=== PATIENT | male | born 1955 | race Caucasian/White ===

== ENCOUNTER 2017-11-10 06:11 | Inpatient (IN) | payer MEDICARE ==
[~2017-11-10] VITALS: Ht 175.3 cm; Wt 72.3 kg
[~2017-11-10 06:11] MED LIST: ALDACTONE25 MG PO; AMIODARONE HCL200 MG PO; CARVEDILOL3.125 MG PO; DIGOXIN125 MCG PO; FUROSEMIDE40 MG PO; HYDROCODONE; KLOR-CON 1010 MEQ PO; LASIX40 MG PO; LISINOPRIL2.5 MG PO; MINOCYCLINE HCL50 MG PO; NORCO 5-325 TA1 EACH PO; POTASSIUM CHLO20 ME1 PO; RESTORIL15 MG PO
[2017-11-10] MEDS ORDERED: METHYLPREDNISOL40 MG PO (08:42)
[2017-11-10] MEDS ORDERED: POTASSIUM CHLO20 ME1 PO (08:42)
[2017-11-10] MEDS ORDERED: DIGOXIN125 MCG PO (08:42)
[2017-11-10] MEDS ORDERED: DOXYCYCLINE HY100 MG PO (08:42)
[2017-11-10] MEDS ORDERED: BENZONATATE100 MG PO (08:42)
[2017-11-10 09:49] LABS: BASOPHILS % 0.5 % (0.0-1.0); EOSINOPHILS # (AUTO) 0.3 (0.0-0.4); HEMATOCRIT 33.5 % (38.2-49.6); HEMOGLOBIN 11.8 g/dL (14.0-18.0); LYMPHOCYTES # (AUTO) 1.6 (1.0-3.2); LYMPHOCYTES % 25.2 % (18.0-39.1); MEAN CORPUSCULAR HGB CONC 35.2 g/dL (31-35); MONOCYTES # (AUTO) 0.7 (0.2-0.8); MONOCYTES % 10.8 % (4.4-11.3); NEUTROPHILS # (AUTO) 3.7 (2.1-6.9); PLATELET COUNT 150 x10e3/uL (140-360); RED BLOOD COUNT 3.19 x10e6/uL (4.3-5.7); RED CELL DISTRIBUTION WIDTH 13.4 % (11.7-14.4)
[2017-11-10 09:51] LABS: BILIRUBIN,URINE NEGATIVE (NEGATIVE); KETONES,URINE NEGATIVE (NEGATIVE); LEUKOCYTE ESTERASE ,URINE NEGATIVE (NEGATIVE); NITRITE,URINE NEGATIVE (NEGATIVE); PROTEIN,URINE DIPSTICK NEGATIVE (NEGATIVE); URINE UROBILINOGEN 0.2 mg/dL (0.2 - 1)
[2017-11-10 10:01] LABS: CLARITY,URINE CLEAR (CLEAR); COLOR,URINE YELLOW (YELLOW)
[2017-11-10 10:31] LABS: EPITHELIAL CELLS,URINE RARE /LPF
[2017-11-10 10:32] LABS: ALANINE AMINOTRANSFERASE 20 IU/L (0-55); ALBUMIN 3.5 g/dL (3.5-5.0); ALBUMIN/GLOBULIN RATIO 0.8 (0.8-2.0); ALKALINE PHOSPHATASE 101 IU/L (40-150); BLOOD UREA NITROGEN 14 mg/dL (7-26); BUN/CREATININE RATIO 17 (6-25); CALCIUM 8.9 mg/dL (8.4-10.2); CARBON DIOXIDE 24 mmol/L (22-29); CHLORIDE 93 mmol/L (98-107); CREATINE KINASE 49 IU/L (30-200); CREATININE, SERUM 0.83 mg/dL (0.72-1.25); EST GLOMERULAR FILTRATION RATE > 60 ML/MIN (60-); GLUCOSE 95 mg/dL (74-118); SODIUM 127 mmol/L (136-145)
--- NOTE | 2017-11-10 10:33 | Diagnostic Imaging Report ---
PROCEDURE:CHEST SINGLE (PORTABLE) TECHNIQUE:Portable AP chest INDICATION:Chest pain COMPARISON:None. FINDINGS: Cardiomegaly with central vascular prominence and bilateral interstitial opacity. Questionable trace bilateral pleural effusions. Pacemaker/AICD over the right hemithorax. Grossly intact skeleton. Right shoulder arthroplasty. CONCLUSION: Pulmonary edema and cardiomegaly consistent with CHF. Dictated by: Michael Zimmerman M.D. on 11/10/2017 at 10:41 Electronically approved by: Michael Zimmerman M.D. on 11/10/2017 at 10:41
[2017-11-10 10:38] LABS: TROPONIN I 0.018 ng/mL (0-0.300)
[2017-11-10] MEDS ORDERED: SODIUM CHLORIDE FLUSH 10 ML SYR INJ PRN (11:00)
[2017-11-10 17:32] VITALS: BP 131/74
[2017-11-10 17:34] LABS: CREATINE KINASE MB 2.4 ng/mL (0.00-5.00); TROPONIN I 0.021 ng/mL (0-0.300)
[2017-11-10 17:45] VITALS: BP 131/74
[2017-11-10] MEDS: FUROSEMIDE INJ 10 MG/ML 4 ML VIAL IV SCH (19:15)
[2017-11-10 20:00] VITALS: BP 118/79
[2017-11-11] VITALS (9 sets, daily range): BP systolic 95–114; BP diastolic 61–74
[2017-11-11 01:30] LABS: CREATINE KINASE MB 2.2 ng/mL (0.00-5.00); TROPONIN I 0.039 ng/mL (0-0.300)
[2017-11-11] MEDS: FUROSEMIDE INJ 10 MG/ML 4 ML VIAL IV SCH ×3 (09:20→21:10)
[2017-11-11] MEDS ORDERED: HYDROCODONE/APAP 5MG-325MG TAB PO PRN (17:30)
[2017-11-11] MEDS ORDERED: CHLORASEPTIC SPRAY 177 ML BTL MM PRN (18:00)
[2017-11-11] MEDS: ALBUTEROL/IPRATROPIUM 3 ML NEB NEB SCH (18:00)
[2017-11-11] MEDS ORDERED: CEFTRIAXONE SOD 1 GM/NS 50 ML 50 ML IV SCH (18:00)
[2017-11-11] MEDS: POTASSIUM CHLORIDE 20 MEQ TAB CR PO SCH (18:22)
[2017-11-11] MEDS: CARVEDILOL 3.125 MG TAB PO SCH (18:22)
[2017-11-11] MEDS: PANTOPRAZOLE SOD 40 MG TABEC PO SCH (18:22)
[2017-11-11] MEDS ORDERED: SODIUM CHLORIDE 0.9% 250ML 250 ML ONE (18:28)
[2017-11-11] MEDS: AZITHROMYCIN 500MG/NS 250 ML 250 ML IV SCH (18:42)
--- NOTE | 2017-11-11 19:15 | History and Physical ---
PRIMARY CARE PROVIDER: Dr. Michael Fletcher. CHIEF COMPLAINT: Diarrhea and shortness of breath. HISTORY OF PRESENT ILLNESS: Mr. Spence is a 62-year-old gentleman who has had diarrhea for about 3 weeks. He thought it was settling down yesterday but it came back. He has had shortness of breath, dyspnea with exertion and a dry cough for the last 4 to 5 days as well. REVIEW OF SYSTEMS: He denies fever, chills or weight loss. He denies sinus congestion. He does complain of sore throat and hoarseness. He denies chest pain or palpitations. He has shortness of breath, dyspnea with exertion and nonproductive cough. He denies abdominal pain, nausea or vomiting but does have diarrhea and claims black stools, possibly melena. He denies dysuria or flank pain. Denies rash or pruritus. Denies joint pain or swelling. Denies bleeding or bruising. Denies headache, vertigo or loss of consciousness. He denies depression, agitation, homicidal or suicidal ideation. PAST MEDICAL HISTORY: Significant for longstanding hypertension. He was diagnosed with idiopathic cardiomyopathy in 2013 with dilated global hypokinesia with an ejection fraction of 20% to 25%. He also was noted to have chronic AFib at that time was well. He had a pacemaker defibrillator placed in 2013. It got infected and it was removed and about a year and a half later he had another one placed. He has had bilateral knee surgery and some back surgery. CURRENT MEDICATIONS: Carvedilol 6.25 mg twice a day. Digoxin 125 mcg daily. Hydrocodone 5 as needed. Lisinopril 5 mg daily. Potassium 20 mEq daily. Spironolactone 25 mg daily. Temazepam 15 at bedtime. Lasix 40 mg twice daily. ALLERGIES: SUVOREXANT. FAMILY HISTORY: Remarkable for hypertension. Negative for premature heart disease. SOCIAL HISTORY: The patient is . Dutch is his primary language. He does smoke, drink or use illegal drugs. He is generally independently functioning. PHYSICAL EXAM: PSYCHIATRIC: He is alert and oriented times 3 with normal mood and affect. CONSTITUTIONAL: He has a normal body habitus. Is in no acute distress. VITAL SIGNS: Blood pressure 100/72. Pulse 93 and irregular. Respiratory rate 16. O2 sat 99% on room air. Temperature 96.8. HEENT: Head is atraumatic. His eyes are anicteric with clear conjunctivae. Ears and nares without erythema or discharge. Oropharynx is clear. NECK: Supple with no mass or thyromegaly. LYMPHATIC SYSTEM: He has no palpable cervical, axillary or inguinal adenopathy. CARDIOVASCULAR: His heart has an irregular rhythm without murmur. Has no peripheral edema. Very weak dorsal pedal pulses. No carotid bruit. RESPIRATORY: Clear to auscultation and percussion. He has some bibasilar rales. He has normal respiratory effort. No wheezing. GASTROINTESTINAL: Abdomen is soft without organomegaly, masses or tenderness. Normal bowel sounds present. CUTANEOUS: His skin is warm and dry to touch with no rash or skin breakdown. MUSCULOSKELETAL: Joints are normal alignment without erythema or swelling. Has no calf tenderness. NEUROLOGIC: Exam is nonfocal with intact cranial nerves and no motor or sensory deficits. DIAGNOSTIC STUDIES: Chest x-ray shows cardiomegaly and pulmonary edema. EKG shows ventricular pacing. His UA is clear. Culture is negative at 24 hours. His flu screen was negative. His BNP 3395.1. His troponin is 0.018, 0.021, 0.039, all negative. Chemistry profile shows normal electrolytes. CO2 24. Creatinine 0.83. BUN 14 for a normal GFR. Calcium is 8.9. Glucose is 97. Transaminases, bilirubin and alkaline phos were normal. CBC shows a white count of 6.38 with normal differential. Hemoglobin 11.8, hematocrit 33.5 and platelet count 150,000. ASSESSMENT AND PLAN 1. Diarrhea. Will check stool for Clostridium difficile. Will start IV Rocephin and p.o. Flagyl empirically. 2. Melena. Will check a fecal occult blood test and start Protonix again empirically. 3. Hyponatremia most likely due to congestive heart failure. Patient will be getting Lasix for that. 4. Bronchitis. The patient will be on IV Zithromax and Rocephin along with cough medicine. 5. Acute on chronic systolic heart failure. The patient will be on IV Lasix q. 8 hours. Will need to monitor his chemistry, his BNP, I's and O's and volume status. 6. Hypertension with chronic systolic heart failure. Will continue low-dose Coreg and lisinopril. 7. Chronic atrial fibrillation with ventricular pacemaker in place. Will continue his amiodarone, Coreg and digoxin. 8. For prophylaxis the patient will be using SCDs for DVT prophylaxis and Protonix for GI prophylaxis. Job#: [id number] GH
[2017-11-11] MEDS: METRONIDAZOLE 500 MG TAB PO SCH ×2 (20:24→23:21)
[2017-11-11] MEDS: CEFTRIAXONE SOD 1 GM VIAL IV SCH (20:27)
[2017-11-11] MEDS ORDERED: TEMAZEPAM 15 MG CAP PO PRN (21:00)
[2017-11-12] VITALS (8 sets, daily range): BP systolic 94–113; BP diastolic 54–78
[2017-11-12] MEDS: FUROSEMIDE INJ 10 MG/ML 4 ML VIAL IV SCH ×3 (05:23→21:41)
[2017-11-12] MEDS: METRONIDAZOLE 500 MG TAB PO SCH ×4 (05:23→23:32)
--- NOTE | 2017-11-12 05:40 | Diagnostic Imaging Report ---
EXAM: CHEST SINGLE (PORTABLE), AP 1 view DATE: 11/12/2017 5:00 AM Time stamp on exam: 0512 hours INDICATION: Congestive heart failure COMPARISON: AP view the chest November 10, 2017 FINDINGS: LINES/TUBES: Stable position of right approach cardiac device. LUNGS: Stable interstitial thickening bilaterally, likely edema PLEURA: Trace bilateral pleural effusions HEART AND MEDIASTINUM: Stable cardiac enlargement BONES AND SOFT TISSUES: No acute findings. IMPRESSION: No interval change Signed by: Dr. Deepthi Funes M.D. on 11/12/2017 5:37 AM
[2017-11-12] MEDS: ALBUTEROL/IPRATROPIUM 3 ML NEB NEB SCH (06:00)
[2017-11-12] MEDS: CEFTRIAXONE SOD 1 GM VIAL IV SCH ×2 (06:03→18:41)
[2017-11-12] MEDS: LISINOPRIL 2.5 MG TAB PO SCH (08:05)
[2017-11-12] MEDS: SPIRONOLACTONE 25 MG TAB PO SCH (08:05)
[2017-11-12] MEDS: CARVEDILOL 3.125 MG TAB PO SCH ×2 (08:05→16:34)
[2017-11-12] MEDS: DIGOXIN 0.125 MG TAB PO SCH (08:05)
[2017-11-12] MEDS: PANTOPRAZOLE SOD 40 MG TABEC PO SCH ×2 (08:05→17:00)
[2017-11-12] MEDS: POTASSIUM CHLORIDE 20 MEQ TAB CR PO SCH ×2 (08:06→17:00)
[2017-11-12 08:28] LABS: BASOPHILS % 0.3 % (0.0-1.0); EOSINOPHILS # (AUTO) 0.5 (0.0-0.4); EOSINOPHILS % 7.4 % (0.0-6.0); HEMATOCRIT 32.1 % (38.2-49.6); HEMOGLOBIN 11.5 g/dL (14.0-18.0); LYMPHOCYTES # (AUTO) 1.4 (1.0-3.2); LYMPHOCYTES % 22.1 % (18.0-39.1); MEAN CORPUSCULAR HEMOGLOBIN 37.5 pg (28-32); MEAN CORPUSCULAR HGB CONC 35.8 g/dL (31-35); MEAN CORPUSCULAR VOLUME 104.6 fL (81-99); MONOCYTES # (AUTO) 0.7 (0.2-0.8); MONOCYTES % 10.3 % (4.4-11.3); NEUTROPHILS # (AUTO) 3.8 (2.1-6.9); NEUTROPHILS % 59.6 % (38.7-80.0); PLATELET COUNT 147 x10e3/uL (140-360); RED BLOOD COUNT 3.07 x10e6/uL (4.3-5.7); RED CELL DISTRIBUTION WIDTH 13.7 % (11.7-14.4)
[2017-11-12 09:00] LABS: ANION GAP 10.8 mmol/L (8-16); BLOOD UREA NITROGEN 10 mg/dL (7-26); BUN/CREATININE RATIO 13 (6-25); CALCIUM 8.1 mg/dL (8.4-10.2); CARBON DIOXIDE 28 mmol/L (22-29); CHLORIDE 96 mmol/L (98-107); CREATININE, SERUM 0.76 mg/dL (0.72-1.25); EST GLOMERULAR FILTRATION RATE > 60 ML/MIN (60-); GLUCOSE 113 mg/dL (74-118); MAGNESIUM 1.5 MG/DL (1.3-2.1); SODIUM 132 mmol/L (136-145)
[2017-11-12 09:03] LABS: POTASSIUM 2.8 mmol/L (3.5-5.1)
[2017-11-12 09:19] LABS: FREE T4 (FREE THYROXINE) 0.95 ng/dL (0.8-1.8); THYROID STIMULATING HORMONE 2.319 uIU/mL (0.350-4.940)
[2017-11-12] MEDS ORDERED: POTASSIUM CHLORIDE 20 MEQ TAB CR PO ONE (10:00)
[2017-11-12] MEDS: AZITHROMYCIN 500MG/NS 250 ML 250 ML IV SCH (17:00)
[2017-11-13] VITALS (8 sets, daily range): BP systolic 85–108; BP diastolic 65–72
[2017-11-13] MEDS: METRONIDAZOLE 500 MG TAB PO SCH ×4 (05:27→23:00)
[2017-11-13] MEDS: FUROSEMIDE INJ 10 MG/ML 4 ML VIAL IV SCH ×3 (05:27→21:04)
[2017-11-13] MEDS: CEFTRIAXONE SOD 1 GM VIAL IV SCH ×2 (06:00→19:58)
[2017-11-13] MEDS: PANTOPRAZOLE SOD 40 MG TABEC PO SCH ×2 (06:33→17:24)
[2017-11-13 08:34] LABS: BASOPHILS % 0.5 % (0.0-1.0); EOSINOPHILS # (AUTO) 0.9 (0.0-0.4); EOSINOPHILS % 10.5 % (0.0-6.0); HEMATOCRIT 34.6 % (38.2-49.6); HEMOGLOBIN 12.1 g/dL (14.0-18.0); LYMPHOCYTES # (AUTO) 2.1 (1.0-3.2); LYMPHOCYTES % 25.7 % (18.0-39.1); MEAN CORPUSCULAR HEMOGLOBIN 37.7 pg (28-32); MEAN CORPUSCULAR VOLUME 107.8 fL (81-99); MONOCYTES # (AUTO) 0.8 (0.2-0.8); MONOCYTES % 9.3 % (4.4-11.3); NEUTROPHILS # (AUTO) 4.3 (2.1-6.9); NEUTROPHILS % 53.6 % (38.7-80.0); PLATELET COUNT 154 x10e3/uL (140-360); RED BLOOD COUNT 3.21 x10e6/uL (4.3-5.7); RED CELL DISTRIBUTION WIDTH 14.2 % (11.7-14.4)
[2017-11-13] MEDS: CARVEDILOL 3.125 MG TAB PO SCH ×2 (08:52→16:28)
[2017-11-13] MEDS: LISINOPRIL 2.5 MG TAB PO SCH (08:53)
[2017-11-13] MEDS: SPIRONOLACTONE 25 MG TAB PO SCH (08:54)
[2017-11-13 09:09] LABS: OCCULT BLOOD STOOL NEGATIVE (NEGATIVE)
[2017-11-13] MEDS: DIGOXIN 0.125 MG TAB PO SCH (09:18)
[2017-11-13] MEDS: POTASSIUM CHLORIDE 20 MEQ TAB CR PO SCH ×2 (09:18→17:24)
[2017-11-13 11:08] LABS: ANION GAP 16.7 mmol/L (8-16); BLOOD UREA NITROGEN 12 mg/dL (7-26); BUN/CREATININE RATIO 13 (6-25); CALCIUM 9.2 mg/dL (8.4-10.2); CARBON DIOXIDE 25 mmol/L (22-29); CHLORIDE 95 mmol/L (98-107); CREATININE, SERUM 0.89 mg/dL (0.72-1.25); EST GLOMERULAR FILTRATION RATE > 60 ML/MIN (60-); GLUCOSE 83 mg/dL (74-118); POTASSIUM 4.7 mmol/L (3.5-5.1); SODIUM 132 mmol/L (136-145)
[2017-11-13 15:18] LABS: C DIFFICILE TOXIN A&B AMP PROB NEGATIVE (NEGATIVE)
[2017-11-13] MEDS: AZITHROMYCIN 500MG/NS 250 ML 250 ML IV SCH (17:24)
[2017-11-14] VITALS (7 sets, daily range): BP systolic 90–107; BP diastolic 60–77
[2017-11-14] MEDS: METRONIDAZOLE 500 MG TAB PO SCH ×4 (05:32→23:56)
[2017-11-14] MEDS: FUROSEMIDE INJ 10 MG/ML 4 ML VIAL IV SCH ×3 (05:32→22:28)
[2017-11-14] MEDS: CEFTRIAXONE SOD 1 GM VIAL IV SCH ×2 (06:10→18:04)
[2017-11-14 07:35] LABS: BASOPHILS % 0.6 % (0.0-1.0); EOSINOPHILS # (AUTO) 0.5 (0.0-0.4); EOSINOPHILS % 7.2 % (0.0-6.0); HEMATOCRIT 31.4 % (38.2-49.6); HEMOGLOBIN 11.2 g/dL (14.0-18.0); LYMPHOCYTES # (AUTO) 2.1 (1.0-3.2); LYMPHOCYTES % 29.3 % (18.0-39.1); MEAN CORPUSCULAR HEMOGLOBIN 37.5 pg (28-32); MEAN CORPUSCULAR HGB CONC 35.7 g/dL (31-35); MONOCYTES # (AUTO) 0.7 (0.2-0.8); MONOCYTES % 9.9 % (4.4-11.3); NEUTROPHILS # (AUTO) 3.8 (2.1-6.9); NEUTROPHILS % 52.7 % (38.7-80.0); PLATELET COUNT 128 x10e3/uL (140-360); RED BLOOD COUNT 2.99 x10e6/uL (4.3-5.7); RED CELL DISTRIBUTION WIDTH 14.2 % (11.7-14.4)
[2017-11-14 07:58] LABS: ANION GAP 14.8 mmol/L (8-16); BLOOD UREA NITROGEN 14 mg/dL (7-26); BUN/CREATININE RATIO 18 (6-25); CALCIUM 8.9 mg/dL (8.4-10.2); CARBON DIOXIDE 26 mmol/L (22-29); CHLORIDE 94 mmol/L (98-107); CREATININE, SERUM 0.79 mg/dL (0.72-1.25); EST GLOMERULAR FILTRATION RATE > 60 ML/MIN (60-); GLUCOSE 97 mg/dL (74-118); POTASSIUM 3.8 mmol/L (3.5-5.1); SODIUM 131 mmol/L (136-145)
[2017-11-14] MEDS: PANTOPRAZOLE SOD 40 MG TABEC PO SCH ×2 (08:30→16:30)
[2017-11-14] MEDS: CARVEDILOL 3.125 MG TAB PO SCH ×2 (09:00→17:34)
[2017-11-14] MEDS: DIGOXIN 0.125 MG TAB PO SCH (09:00)
[2017-11-14] MEDS: LISINOPRIL 2.5 MG TAB PO SCH (09:00)
[2017-11-14] MEDS: SPIRONOLACTONE 25 MG TAB PO SCH (09:00)
[2017-11-14] MEDS: POTASSIUM CHLORIDE 20 MEQ TAB CR PO SCH ×2 (09:28→17:00)
[2017-11-14] MEDS ORDERED: FUROSEMIDE INJ 10 MG/ML 4 ML VIAL IV ONE (14:15)
[2017-11-14] MEDS: CHOLESTYRAMINE 4 GM PACKET PO SCH ×2 (15:22→17:34)
[2017-11-14] MEDS: AZITHROMYCIN 500MG/NS 250 ML 250 ML IV SCH (18:04)
[2017-11-14] MEDS ORDERED: SODIUM CHLORIDE 0.9% 250ML 250 ML ONE (18:51)
[2017-11-15 01:22] VITALS: BP 97/72
[2017-11-15 05:12] VITALS: BP 108/67
[2017-11-15] MEDS: FUROSEMIDE INJ 10 MG/ML 4 ML VIAL IV SCH ×2 (06:03→14:10)
[2017-11-15] MEDS: METRONIDAZOLE 500 MG TAB PO SCH ×2 (06:03→12:50)
[2017-11-15 06:43] LABS: BASOPHILS # (AUTO) 0.1 (0.0-0.1); BASOPHILS % 0.8 % (0.0-1.0); EOSINOPHILS # (AUTO) 0.6 (0.0-0.4); EOSINOPHILS % 9.7 % (0.0-6.0); HEMATOCRIT 32.2 % (38.2-49.6); HEMOGLOBIN 11.4 g/dL (14.0-18.0); LYMPHOCYTES # (AUTO) 1.9 (1.0-3.2); LYMPHOCYTES % 30.4 % (18.0-39.1); MEAN CORPUSCULAR HEMOGLOBIN 37.6 pg (28-32); MEAN CORPUSCULAR HGB CONC 35.4 g/dL (31-35); MEAN CORPUSCULAR VOLUME 106.3 fL (81-99); MONOCYTES # (AUTO) 0.7 (0.2-0.8); MONOCYTES % 11.3 % (4.4-11.3); NEUTROPHILS % 47.5 % (38.7-80.0); PLATELET COUNT 141 x10e3/uL (140-360); RED BLOOD COUNT 3.03 x10e6/uL (4.3-5.7); RED CELL DISTRIBUTION WIDTH 14.3 % (11.7-14.4)
[2017-11-15 07:00] LABS: ANION GAP 15.5 mmol/L (8-16); BLOOD UREA NITROGEN 13 mg/dL (7-26); BUN/CREATININE RATIO 16 (6-25); CARBON DIOXIDE 27 mmol/L (22-29); CHLORIDE 95 mmol/L (98-107); CREATININE, SERUM 0.79 mg/dL (0.72-1.25); EST GLOMERULAR FILTRATION RATE > 60 ML/MIN (60-); GLUCOSE 95 mg/dL (74-118); POTASSIUM 3.5 mmol/L (3.5-5.1); SODIUM 134 mmol/L (136-145)
--- NOTE | 2017-11-15 07:00 | Diagnostic Imaging Report ---
EXAM: CHEST SINGLE (PORTABLE), AP 1 view DATE: 11/15/2017 7:00 AM Time stamp on exam: 0524 hours INDICATION: Follow-up shortness of breath, edema COMPARISON: AP view the chest November 10, 2017 and 11/12/2017 FINDINGS: LINES/TUBES: Stable position of right approach cardiac device. LUNGS: Stable interstitial thickening bilaterally, likely edema PLEURA: Trace bilateral pleural effusions HEART AND MEDIASTINUM: Stable cardiac enlargement BONES AND SOFT TISSUES: No acute findings. IMPRESSION: Stable chest with evidence of mild pulmonary edema. Signed by: Dr. Hasmukh Sheth M.D. on 11/15/2017 6:56 AM
[2017-11-15] MEDS: CEFTRIAXONE SOD 1 GM VIAL IV SCH (07:07)
[2017-11-15] MEDS: PANTOPRAZOLE SOD 40 MG TABEC PO SCH (07:47)
[2017-11-15 08:00] VITALS: BP 100/71
[2017-11-15] MEDS: CHOLESTYRAMINE 4 GM PACKET PO SCH (08:27)
[2017-11-15] MEDS: DIGOXIN 0.125 MG TAB PO SCH (08:27)
[2017-11-15] MEDS: SPIRONOLACTONE 25 MG TAB PO SCH (08:27)
[2017-11-15] MEDS: CARVEDILOL 3.125 MG TAB PO SCH (08:28)
[2017-11-15] MEDS: LISINOPRIL 2.5 MG TAB PO SCH (08:28)
[2017-11-15] MEDS: POTASSIUM CHLORIDE 20 MEQ TAB CR PO SCH (08:28)
[2017-11-15 11:59] VITALS: BP 98/82
[2017-11-15] MEDS ORDERED: QUESTRAN PACKET4 GM PO (14:29)
[2017-11-15] MEDS ORDERED: MUCINEX D ER T1 EACH PO (14:29)
[2017-11-15] MEDS ORDERED: ZITHROMAX500 MG PO (14:29)
[2017-11-15] MEDS ORDERED: CEFTIN PO (14:29)
[2017-11-15] MEDS ORDERED: MUCINEX DM ER1 EACH PO (14:34)
--- NOTE | 2017-11-15 20:27 | Discharge Summary ---
ADMISSION DIAGNOSES 1. Diarrhea. 2. Melena. 3. Hyponatremia. 4. Bronchitis. 5. Xooqg-xs-bkxziht systolic heart failure. 6. Hypertension. 7. Chronic atrial fibrillation. DISCHARGE DIAGNOSES 1. Diarrhea. 2. Melena. 3. Hyponatremia. 4. Bronchitis. 5. Clqra-qh-ehyaxxm systolic heart failure. 6. Hypertension. 7. Chronic atrial fibrillation. 8. Ruled out Clostridium difficile. 9. Ruled out gastrointestinal bleed. HISTORY: Patient has a history of hypertension, idiopathic cardiomyopathy with dilated global hypokinesia and EF of 20%-25%, AFib, pacemaker defibrillator, which was removed about a year and a half after insertion due to infection. He had another one placed shortly after. Bilateral knee surgery and back surgery. HOSPITAL COURSE: Patient was admitted. A 62-year-old male admitted with diarrhea for about 3 weeks. He also complains of shortness of breath, dyspnea with exertion, and dry cough for the last 4-5 days. Patient was started on Zithromax and Rocephin IV along with cough medication and Flagyl for the diarrhea. Patient received Protonix and Lasix for CHF, Protonix for possible GI bleed. Serial BNPs were done and I and O's were monitored for heart failure. Patient continued home dose of Coreg and lisinopril, amiodarone, and digoxin. On admission, chest x-ray showed pulmonary edema and cardiomegaly consistent with CHF. Date of discharge, patient had another chest x-ray, which showed stable chest x-ray with evidence of mild edema. Urine culture was negative. Stool culture was pending, but at time of discharge, patient said the diarrhea was much improved. BNP stayed in the 2000 and 3000 range regardless of strict I and O's, fluid restriction and Lasix. Patient had no swelling, no trouble breathing, no shortness of breath. Patient often wandered the halls speaking to the nurses and walking out to his car and going to get food. He was much better by the end of the hospital stay. Vital signs stable. Patient was negative for flu. Patient discharged home with 3 more days of Zithromax and Ceftin, Mucinex, and Questran pack. Patient will follow up with primary care in 1-2 weeks. Dictated by: Manuela Morrow NP DONOVAN REED MD Job#: [id number] CQ
== END 2017-11-15 15:10 | disposition home or self-care (01) | DRG 391 ==
LOC: ER 06:11 → ERHOLD 11:31 → OBSVTOIN 11:31 → MED/SURG3 15:59
PROVIDERS: ADMIT Internal Medicine; ATTEND Internal Medicine
DX: R19.7 Diarrhea, unspecified (principal); I50.23 Acute on chronic systolic (congestive) heart failure; E87.1 Hypo-osmolality and hyponatremia; I42.8 Other cardiomyopathies; K92.1 Melena; I11.0 Hypertensive heart disease with heart failure; Z79.01 Long term (current) use of anticoagulants; I48.2 Chronic atrial fibrillation; J40 Bronchitis, not specified as acute or chronic; E87.6 Hypokalemia; Z95.0 Presence of cardiac pacemaker
CPT/HCPCS: 36415; 71010; 80048; 80053; 80162; 81001; 82270; 82550; 82553; 83735; 83880; 84439; 84443; 84484; 85025; 87045; 87081; 87086; 87400; 87493; 93005; 99284; J0456; J0696; J1940; J7050

== ENCOUNTER 2017-12-29 13:34 | Emergency (ER) | payer MEDICARE ==
[~2017-12-29] VITALS: Ht 327.7 cm; Wt 72.1 kg
[~2017-12-29 13:34] MED LIST changes: +BENZONATATE100 MG PO; +CEFTIN PO; +DOXYCYCLINE HY100 MG PO; +METHYLPREDNISOL40 MG PO; +MUCINEX D ER T1 EACH PO; +MUCINEX DM ER1 EACH PO; +QUESTRAN PACKET4 GM PO; +ZITHROMAX500 MG PO
--- OUTSIDE RECORDS SUMMARY | 2017-12-29 13:36 | XMS REPORT ---
Author Author [facility] Address Unknown Phone Unavailable Care Team Providers Care Regional Training Manager Name Role Phone DONOVAN REED Unavailable Unavailable KADEN DUNCAN Unavailable Unavailable Problems This patient has no known problems. Allergies, Adverse Reactions, Alerts This patient has no known allergies or adverse reactions. Medications This patient has no known medications. Results Test Description Test Time Test Comments Text Results Atomic Results Result Comments CHEST SINGLE (PORTABLE) [place] [address] Patient Name: DORI NEVAREZ MR #: [id number] : 1955 Age/Sex: 62/M Req #: [id number] Adm Physician: DONOVAN REED MD Ordered by: Manuela Fairchild SENIOR HUMAN RESOURCES REPRESENTATIVE Report #: [id number] Location: MED/SURG3 Room/Bed: [facility] Procedure: [id number] DX/CHEST SINGLE (PORTABLE) Exam Date: 11/15/17 Exam Time: 0435 REPORT STATUS: Signed EXAM: CHEST SINGLE (PORTABLE), AP 1 view DATE: 11/15/2017 7:00 AM Time stamp on exam: 0524 hours INDICATION: Follow-up shortness of breath, edema COMPARISON: AP view the chest November 10, 2017 and 11/12/2017 FINDINGS: LINES/TUBES: Stable position of right approach cardiac device. LUNGS: Stable interstitial thickening bilaterally, likely edema PLEURA: Trace bilateral pleural effusions HEART AND MEDIASTINUM: Stable cardiac enlargement BONES AND SOFT TISSUES: No acute findings. IMPRESSION: Stable chest with evidence of mild pulmonary edema. Signed by: Dr. Hasmukh Sheth M.D. on 11/15/2017 6:56 AM Dictated By: HASMUKH FERNANDEZ MD 5 Transcribed By: VAL on 11/15/17655 COPY TO: MANUELA FAIRCHILD NP CHEST SINGLE (PORTABLE) [place] [address] Patient Name: DORI NEVAREZ MR #: [id number] : 1955 Age/Sex: 62/M Req #: [id number] Adm Physician: DONOVAN REED MD Ordered by: DONOVAN REED MD Report #: [id number] Location: [facility] Room/Bed: [facility] Procedure: [id number] DX/CHEST SINGLE (PORTABLE) Exam Date: 11/12/17 Exam Time: 0425 REPORT STATUS: Signed EXAM: CHEST SINGLE (PORTABLE), AP 1 view DATE: 11/12/2017 5:00 AM Time stamp on exam: 0512 hours INDICATION: Congestive heart failure COMPARISON: AP view the chest November 10, 2017 FINDINGS: LINES/TUBES: Stable position of right approach cardiac device. LUNGS: Stable interstitial thickening bilaterally, likely edema PLEURA: Trace bilateral pleural effusions HEART AND MEDIASTINUM: Stable cardiac enlargement BONES AND SOFT TISSUES: No acute findings. IMPRESSION: No interval change Signed by: Dr. Mariangel Funes M.D. on 11/12/2017 5:37 AM Dictated By: MARIANGEL FUNES MD 6 Transcribed By: VAL on 11/12/17536 COPY TO: DONOVAN REED MD CHEST SINGLE (PORTABLE) [place] [address] Patient Name: DORI NEVAREZ MR #: [id number] : 1955 Age/Sex: 62/M Req #: [id number] Adm Physician: Ordered by: KADEN GRIER MD Report #: [id number] Location: ER Room/Bed: Procedure: [id number] DX/CHEST SINGLE (PORTABLE) Exam Date: 11/10/17 Exam Time: 1000 REPORT STATUS: Signed PROCEDURE: CHEST SINGLE (PORTABLE) TECHNIQUE: Portable AP chest INDICATION: Chest pain COMPARISON: None. FINDINGS: Cardiomegaly with central vascular prominence and bilateral interstitial opacity. Questionable trace bilateral pleural effusions. Pacemaker/AICD over the right hemithorax. Grossly intact skeleton. Right shoulder arthroplasty. CONCLUSION: Pulmonary edema and cardiomegaly consistent with CHF. Dictated by: Yaya Zimmerman M.D. on 11/10/2017 at 10:41 Electronically approved by: Yaya Zimmerman M.D. on 11/10/2017 at 10:41 Dictated By: YAYA ZIMMERMAN MD 40 Transcribed By: CECILIA on 11/10/171040 COPY TO: KADEN GRIER MD CHEST SINGLE (PORTABLE) [place] [address] Patient Name: DORI NEVAREZ MR #: [id number] : 1955 Age/Sex: 62/M Req #: [id number] [facility] Physician: Ordered by: KADEN DUNCAN MD Report #: [id number] Location: ER Room/Bed: Procedure: [id number] DX/CHEST SINGLE (PORTABLE) Exam Date: 07/25/17 Exam Time: 1929 REPORT STATUS: Signed A single frontal view of the chest. HISTORY: Chest pain, leg swollen COMPARISON : Chest radiograph May 01, 2017 DISCUSSION: Portable technique, limits sensitivity of the exam. Soft tissue attenuation partially limits sensitivity of the exam. Tubes/Lines: Unchanged appearance of the implanted cardiac device. Lungs and pleura: Low lung volumes result in bibasilar vascular crowding, accentuation of the pulmonary interstitial markings, central pulmonary vasculature, and the cardiac silhouette. Allowing for these limitations, the findings are as follows: Diffusely increased interstitial markings. Raimundo B lines. Trace left pleural effusion versus pleural thickening. Heart and mediastinum: The cardiac silhouette and central pulmonary vasculature appear prominent. Bones: No acute osseous lesion is identified, given this limited exam. IMPRESSION: Findings compatible with volume overload resulting in central pulmonary vascular congestion, pulmonary edema and a trace left pleural effusion. Signed by: Dr. Tomi Rahman M.D. on 07/25/2017 7:50 PM Dictated By: TOMI RAHMAN DO 49 Transcribed By: VAL on 07/25/171949 COPY TO: KADEN DUNCAN MD
--- NOTE | 2017-12-29 14:53 | Diagnostic Imaging Report ---
PROCEDURE:CHEST SINGLE (NOT PORTABLE) TECHNIQUE:Portable AP chest INDICATION:Shortness of breath COMPARISON:Patients [facility], DX, CHEST SINGLE (PORTABLE), 11/15/2017, 5:24. FINDINGS: Small left pleural effusion with adjacent airspace opacity. Small volume right middle and lower lobe airspace opacity. Enlarged cardiac silhouette and central vascular prominence. Pacemaker/AICD over the right hemithorax; leads intact. Right shoulder arthroplasty. CONCLUSION: Small left pleural effusion with adjacent airspace opacity in keeping with atelectasis with or without pneumonia. Cardiomegaly with central vascular congestion. Dictated by: Michael Zimmerman M.D. on 12/29/2017 at 14:53 Electronically approved by: Michael Zimmerman M.D. on 12/29/2017 at 14:53
[2017-12-29 16:49] LABS: BASOPHILS % 0.7 % (0.0-1.0); EOSINOPHILS # (AUTO) 0.2 (0.0-0.4); EOSINOPHILS % 3.3 % (0.0-6.0); HEMATOCRIT 35.1 % (38.2-49.6); LYMPHOCYTES # (AUTO) 1.8 (1.0-3.2); LYMPHOCYTES % 31.7 % (18.0-39.1); MEAN CORPUSCULAR VOLUME 102.6 fL (81-99); MONOCYTES # (AUTO) 0.6 (0.2-0.8); MONOCYTES % 11.4 % (4.4-11.3); NEUTROPHILS # (AUTO) 2.9 (2.1-6.9); NEUTROPHILS % 52.4 % (38.7-80.0); PLATELET COUNT 139 x10e3/uL (140-360); RED BLOOD COUNT 3.42 x10e6/uL (4.3-5.7); RED CELL DISTRIBUTION WIDTH 13.8 % (11.7-14.4)
[2017-12-29 17:07] LABS: ALANINE AMINOTRANSFERASE 30 IU/L (0-55); ALBUMIN 3.3 g/dL (3.5-5.0); ALBUMIN/GLOBULIN RATIO 0.8 (0.8-2.0); ALKALINE PHOSPHATASE 86 IU/L (40-150); ANION GAP 13.9 mmol/L (8-16); BLOOD UREA NITROGEN 17 mg/dL (7-26); BUN/CREATININE RATIO 20 (6-25); CALCIUM 8.6 mg/dL (8.4-10.2); CARBON DIOXIDE 23 mmol/L (22-29); CHLORIDE 92 mmol/L (98-107); CREATINE KINASE 133 IU/L (30-200); CREATININE, SERUM 0.83 mg/dL (0.72-1.25); EST GLOMERULAR FILTRATION RATE > 60 ML/MIN (60-); GLUCOSE 79 mg/dL (74-118); POTASSIUM 3.9 mmol/L (3.5-5.1); SODIUM 125 mmol/L (136-145)
== END 2017-12-29 17:30 | disposition left against medical advice (07) ==
LOC: ER 13:34
DX: R60.0 Localized edema (principal); I70.203 Unspecified atherosclerosis of native arteries of extremities, bilateral legs; E87.1 Hypo-osmolality and hyponatremia
CPT/HCPCS: 36415; 71045; 80053; 82550; 82553; 83880; 84484; 85025; 93005

== ENCOUNTER 2018-01-02 16:40 | Inpatient (IN) | payer MEDICARE ==
[~2018-01-02] VITALS: Ht 175.3 cm; Wt 75.9 kg
--- OUTSIDE RECORDS SUMMARY | 2018-01-02 16:43 | XMS REPORT | Continuity of Care Document ---
Author Author [facility] Organization [facility] Address [address] [place] [address] Phone Unavailable Care Team Providers Care [employer] Supervisor Name Role Phone YAYA HUNTER DO PCP Insurance Providers Guarantor Tacho Nevarez Address [address] [place] [address] Email [email or web address] Medicare Complete Policy Number [id number] Subscriber's Name Tacho Nevarez Relationship 18 Self / Same As Patient Group Number [id number] Group Name [id number] Effective Date 17 Advance Directives Directive Response Recorded Date/Time Does the patient have an advance directive? No 07/26/17 5:47pm If yes, is advance directive on file with [facility]? No 07/26/17 5:47pm If not on file with [facility] will patient provide a copy? No 07/26/17 5:47pm Problems Medical Problem Onset Date Status CHF (congestive heart failure) Unknown CHF (congestive heart failure) Unknown Hyponatremia Unknown TIA (transient ischemic attack) Unknown Medications Current Home Medications Medication Dose Units Route Directions Days Qty Instructions Start Date Azithromycin (Zithromax) 500 Mg Tablet 500 Mg Oral Daily 3 Days Benzonatate 100 Mg Capsule 100 Mg Oral Three Times A Day Carvedilol 3.125 Mg Tablet 6.25 Mg Oral Twice A Day 60 Tab Ceftin 500 Mg Oral Twice A Day 3 Days 11/15/17 Cholestyramine (With Sugar) (Questran Packet) 4 Gm Packet 4 Gm Oral Daily as needed for Diarrhea 3 Days 11/15/17 Digoxin 125 Mcg Tablet 0.125 Mg Oral Daily 30 Tab Furosemide 40 Mg Tablet 40 Mg Oral Bid@,18 7 Days 04/28/17 Furosemide (Lasix) 40 Mg Tablet 40 Mg Oral Twice A Day 60 Tab 07/28 Guaifenesin/Dextromethorphan (Mucinex Dm Er 600-30 Mg Tablet) 1 Each Tab.er.12h 1 Each Oral Every 12 Hours as needed for Nasal Congestion 7 Days 11/15/17 Hydrocodone Bit/Acetaminophen (Plano 5-325 Tablet) 1 Each Tablet 1 Each Oral Twice A Day as needed for Pain Lisinopril 2.5 Mg Tablet 5 Mg Oral Daily 30 Days 04/28/17 Methylprednisolone Sod Succ 40 Mg Vial 4 Mg Oral Potassium Chloride 20 Meq Tab.er.prt 20 Meq Oral Daily Spironolactone (Aldactone) 25 Mg Tablet 25 Mg Oral Daily 30 Days Temazepam (Restoril) 15 Mg Capsule 15 Mg Oral Bedtime as needed for Insomnia 15 07/28/17 Past Home Medications Medication Directions Ordered Status Amiodarone Hcl 200 Mg Tablet, 1 Tab Oral Daily Discontinued Amiodarone Hcl 200 Mg Tablet, 200 Mg Oral Twice A Day Discontinued Digoxin 125 Mcg Tablet, 0.125 Mg Oral Daily Discontinued Doxycycline Hyclate 100 Mg Capsule, 100 Mg Oral Every 12 Hours Discontinued Furosemide 40 Mg Tablet, 20 Mg Oral Daily Discontinued Hydrocodone 37.5 Prn , Discontinued Minocycline Hcl 50 Mg Capsule, 100 Mg Oral Every 12 Hours Discontinued Potassium Chloride 20 Meq Tab.er.prt, 20 Meq Oral Twice A Day Discontinued Potassium Chloride (Klor-Con 10) 10 Meq Tablet.er, 1 Tab Oral Twice A Day Discontinued Social History Social History Problem Response Recorded Date/Time Onset Date Status Hx Psychiatric Problems No 11/10/2017 5:52pm Not Applicable Not Applicable Hx Eating Disorder No 07/26/2017 5:47pm Not Applicable Not Applicable Hx Substance Use Disorder No 07/26/2017 5:47pm Not Applicable Not Applicable Hx Depression No 07/26/2017 5:47pm Not Applicable Not Applicable Hx Alcohol Use No 07/26/2017 5:47pm Not Applicable Not Applicable Hx Substance Use Treatment No 07/26/2017 5:47pm Not Applicable Not Applicable Hx Physical Abuse No 07/26/2017 5:47pm Not Applicable Not Applicable Hospital Discharge Instructions No hospital discharge instruction information available. Plan of Care Discharge Date 12/29/17 5:30pm Disposition AGAINST MEDICAL ADVICE Condition at Discharge Stable Forms Provided Work/School Excuse Prescriptions See Medication Section Functional Status No functional status information available. Allergies, Adverse Reactions, Alerts Allergen Type Severity Reaction Status Last Updated suvorexant Allergy Intermediate SWELLING Active 07/25/17 Immunizations No immunization information available. Vital Signs Acute Vital Signs Vital Response Date/Time Temperature (Fahrenheit) 96.0 degrees F (97.6 - 99.5) 11/15/2017 11:59am Pulse Pulse Rate (adult) 107 bpm (60 - 90) 11/15/2017 11:59am Respiratory Rate 22 bpm (12 - 24) 11/15/2017 11:59am Blood Pressure 98/82 mm Hg 11/15/2017 11:59am Height 10 ft 9 in 12/29/2017 2:19pm Weight 159 lb 12/29/2017 2:19pm Body Mass Index 6.7 kg/m^2 12/29/2017 2:19pm Results Laboratory Results Test Name Result Units Flags Reference Collection Date/Time Result Date/ Time Comments Urine Total Volume 2450 ml/24hr H 800-2000 04/23/2017 1:40pm 04/24/2017 2:00pm Urine Random Sodium 64 mmol/L 04/23/2017 1:40pm 04/24/2017 2:10pm Urine Sodium 24 Hour 156 MMOL/24H 40-220 04/23/2017 1:40pm 04/24/2017 2 :10pm Bedside Glucose 78 mg/dL 70-120 05/01/2017 9:19pm 05/01/2017 9:28pm Meter ID: [id number] Lactic Acid Level 12.8 MG/DL 4.5-19.8 05/01/2017 9:00pm 05/01/2017 10: 17pm Triglycerides Level 56 MG/DL 0-149 05/03/2017 6:00am 05/03/2017 7:13am Cholesterol Level 93 MD/DL 0-199 05/03/2017 6:00am 05/03/2017 7:13am Less than 200 mg/dL Low Risk 201 - 239 mg/dL Borderline Risk 240 mg/dl and greater High Risk LDL Cholesterol 49 MG/DL L 60-130 05/03/2017 6:00am 05/03/2017 7:13am HDL Cholesterol 33 MG/DL L 40-60 05/03/2017 6:00am 05/03/2017 7:13am Cholesterol/HDL Ratio 2.8 L 3.9-4.7 05/03/2017 6:00am 05/03/2017 7: 13am Prothrombin Time 14.5 seconds 11.9-14.5 07/25/2017 5:52pm 07/25/2017 6: 28pm Prothromb Time International Ratio 1.07 07/25/2017 5:52pm 2016 6:28pm Oral Anticoagulant Therapy INR Values: 1. Low Intensity Therapy 1.5 - 2.0 2. Moderate Intensity Therapy 2.0 - 3.0 3. High Intensity Therapy(1) 2.5 - 3.5 4. High Intensity Therapy(2) 3.0 - 4.0 5. Panic Value INR > 5.0 Activated Partial Thromboplast Time 28.7 seconds 23.8-35.5 07/25/2017 5: 52pm 07/25/2017 6:28pm Phosphorus Level 3.2 MG/DL 2.3-4.7 07/27/2017 6:25am 07/27/2017 7:10am Vitamin B12 Level 479 pg/mL 213-816 07/28/2017 6:10am 07/28/2017 8: 24am Urine Color YELLOW YELLOW 11/10/2017 9:00am 11/10/2017 10:01am Urine Clarity CLEAR CLEAR 11/10/2017 9:00am 11/10/2017 10:01am Urine Specific Electra 1.015 1.010-1.025 11/10/2017 9:00am 2017 10:01am Urine pH 6 5 - 7 11/10/2017 9:00am 11/10/2017 10:01am Urine Leukocyte Esterase NEGATIVE NEGATIVE 11/10/2017 9:00am 2017 10:01am Urine Nitrite NEGATIVE NEGATIVE 11/10/2017 9:00am 11/10/2017 10:01am Urine Protein NEGATIVE NEGATIVE 11/10/2017 9:00am 11/10/2017 10:01am Urine Glucose (UA) NEGATIVE NEGATIVE 11/10/2017 9:00am 11/10/2017 10: 01am Urine Ketones NEGATIVE NEGATIVE 11/10/2017 9:00am 11/10/2017 10:01am Urine Urobilinogen 0.2 mg/dL 0.2 - 1 11/10/2017 9:00am 11/10/2017 10: 01am Urine Bilirubin NEGATIVE NEGATIVE 11/10/2017 9:00am 11/10/2017 10: 01am Urine Blood NEGATIVE NEGATIVE 11/10/2017 9:00am 11/10/2017 10:01am Urine WBC NONE /HPF 0-5 11/10/2017 9:00am 11/10/2017 10:31am Urine RBC NONE /HPF 0-5 11/10/2017 9:00am 11/10/2017 10:31am Urine Bacteria NONE /HPF NONE 11/10/2017 9:00am 11/10/2017 10:31am Urine Epithelial Cells RARE /LPF NONE 11/10/2017 9:00am 11/10/2017 10: 31am Influenza Virus Types A,B Antigen NEGATIVE NEGATIVE 11/10/2017 10: 30am 11/10/2017 11:07am Magnesium Level 1.5 MG/DL 1.3-2.1 11/12/2017 7:30am 11/12/2017 9:03am Free Thyroxine 0.95 ng/dL 0.8-1.8 11/12/2017 7:30am 11/12/2017 9:21am Thyroid Stimulating Hormone (TSH) 2.319 uIU/mL 0.350-4.940 11/12/2017 7: 30am 11/12/2017 9:21am Digoxin Level 0.54 ng/mL L 0.8-2.0 11/10/2017 8:56am 11/10/2017 10:36am Stool Occult Blood NEGATIVE NEGATIVE 11/13/2017 6:15am 11/13/2017 9: 09am Clostridium Difficile Toxin A & B NEGATIVE NEGATIVE 11/13/2017 6:15am 11/13/2017 3:18pm Testing on stool aspirate specimens is outside [employer] since specimen type not validated on this assay. White Blood Count 5.52 x10e3/uL 4.8-10.8 12/29/2017 4:30pm 12/29/2017 4 :50pm Red Blood Count 3.42 x10e6/uL L 4.3-5.7 12/29/2017 4:30pm 12/29/2017 4: 50pm Hemoglobin 13.0 g/dL L 14.0-18.0 12/29/2017 4:30pm 12/29/2017 4:50pm Hematocrit 35.1 % L 38.2-49.6 12/29/2017 4:30pm 12/29/2017 4:50pm Mean Corpuscular Volume 102.6 fL H 81-99 12/29/2017 4:30pm 12/29/2017 4: 50pm Mean Corpuscular Hemoglobin 38.0 pg H 28-32 12/29/2017 4:30pm 2017 4:50pm Mean Corpuscular Hemoglobin Concent 37.0 g/dL H 31-35 12/29/2017 4:30pm 12/29/2017 4:50pm Red Cell Distribution Width 13.8 % 11.7-14.4 12/29/2017 4:30pm 2017 4:50pm Platelet Count 139 x10e3/uL L 140-360 12/29/2017 4:30pm 12/29/2017 4: 50pm Neutrophils (%) (Auto) 52.4 % 38.7-80.0 12/29/2017 4:30pm 12/29/2017 4: 50pm Lymphocytes (%) (Auto) 31.7 % 18.0-39.1 12/29/2017 4:30pm 12/29/2017 4: 50pm Monocytes (%) (Auto) 11.4 % H 4.4-11.3 12/29/2017 4:30pm 12/29/2017 4: 50pm Eosinophils (%) (Auto) 3.3 % 0.0-6.0 12/29/2017 4:30pm 12/29/2017 4: 50pm Basophils (%) (Auto) 0.7 % 0.0-1.0 12/29/2017 4:30pm 12/29/2017 4:50pm IM GRANULOCYTES % 0.5 % 0.0-1.0 12/29/2017 4:30pm 12/29/2017 4:50pm Neutrophils # (Auto) 2.9 2.1-6.9 12/29/2017 4:30pm 12/29/2017 4:50pm Lymphocytes # (Auto) 1.8 1.0-3.2 12/29/2017 4:30pm 12/29/2017 4:50pm Monocytes # (Auto) 0.6 0.2-0.8 12/29/2017 4:30pm 12/29/2017 4:50pm Eosinophils # (Auto) 0.2 0.0-0.4 12/29/2017 4:30pm 12/29/2017 4:50pm Basophils # (Auto) 0.0 0.0-0.1 12/29/2017 4:30pm 12/29/2017 4:50pm Absolute Immature Granulocyte (auto 0.03 x10e3/uL 0-0.1 12/29/2017 4: 30pm 12/29/2017 4:50pm Sodium Level 125 mmol/L L 136-145 12/29/2017 4:30pm 12/29/2017 5:07pm Potassium Level 3.9 mmol/L 3.5-5.1 12/29/2017 4:30pm 12/29/2017 5:07pm Chloride Level 92 mmol/L L 98-107 12/29/2017 4:30pm 12/29/2017 5:07pm Carbon Dioxide Level 23 mmol/L 22-29 12/29/2017 4:30pm 12/29/2017 5: 07pm Anion Gap 13.9 mmol/L 8-16 12/29/2017 4:30pm 12/29/2017 5:07pm Blood Urea Nitrogen 17 mg/dL 7-26 12/29/2017 4:30pm 12/29/2017 5:07pm Creatinine 0.83 mg/dL 0.72-1.25 12/29/2017 4:30pm 12/29/2017 5:07pm BUN/Creatinine Ratio 20 6-25 12/29/2017 4:30pm 12/29/2017 5:07pm Estimat Glomerular Filtration Rate > 60 ML/MIN 60- 12/29/2017 4:30pm 5:07pm Ranges were taken from the National Kidney Disease Education Program and the National Kidney Foundation literature. Reference ranges: 60 or greater: Normal 16-59 (for 3 consecutive months): Chronic kidney disease 15 or less: Kidney failure Glucose Level 79 mg/dL 74-118 12/29/2017 4:30pm 12/29/2017 5:07pm Calcium Level 8.6 mg/dL 8.4-10.2 12/29/2017 4:30pm 12/29/2017 5:07pm Total Bilirubin 1.2 mg/dL 0.2-1.2 12/29/2017 4:30pm 12/29/2017 5:07pm Aspartate Amino Transf (AST/SGOT) 49 IU/L H 5-34 12/29/2017 4:30pm 12/29 5:07pm Alanine Aminotransferase (ALT/SGPT) 30 IU/L 0-55 12/29/2017 4:30pm 10/2017 5:07pm Total Protein 7.3 g/dL 6.5-8.1 12/29/2017 4:30pm 12/29/2017 5:07pm Albumin 3.3 g/dL L 3.5-5.0 12/29/2017 4:30pm 12/29/2017 5:07pm Globulin 4.0 g/dL H 2.3-3.5 12/29/2017 4:30pm 12/29/2017 5:07pm Albumin/Globulin Ratio 0.8 0.8-2.0 12/29/2017 4:30pm 12/29/2017 5: 07pm Alkaline Phosphatase 86 IU/L 40-150 12/29/2017 4:30pm 12/29/2017 5: 07pm B-Type Natriuretic Peptide 3056.4 pg/mL H 0-100 12/29/2017 4:30pm 2017 5:13pm Creatine Kinase 133 IU/L 30-200 12/29/2017 4:30pm 12/29/2017 5:07pm Creatine Kinase MB 6.10 ng/mL H 0-5.0 12/29/2017 4:30pm 12/29/2017 5: 13pm Troponin I 0.014 ng/mL 0-0.300 12/29/2017 4:30pm 12/29/2017 5:13pm Microbiology Results Procedure Source Organism/Result Collection Date/Time Result Date/Time Result Status Blood Culture Blood NO GROWTH AFTER 5 DAYS, FINAL REPORT 05/01/2017 9:00pm 05/06/2017 9:26pm Final Procedures Procedure Status Date Provider(s) INSERT CARD RSYNC DEFIB PULS GEN IN CHEST SUBCU/FASCIA, PERC Completed PLACIDO WREN MD INSERTION OF DEFIB LEAD INTO R VENTRICLE, PERC APPROACH Completed 04/26/17 PLACIDO WREN MD INSERTION OF DEFIBRILLATOR LEAD INTO R ATRIUM, PERC APPROACH Completed PLACIDO WREN MD Computed tomography of brain without radiopaque contrast Active 05/01/17 ADRIANA FARRAR MD X-ray of chest, single view Active 12/29/17 KADEN GRIER MD Encounters Encounter Location Arrival/Admit Date Discharge/Depart Date Attending Provider Departed Emergency Room [facility] 12/29/17 1:34pm 5:30pm KADEN GRIER MD Discharged Inpatient [facility] 11/10/17 11:31am 3:10pm DONOVAN REED MD Discharged Inpatient [facility] 07/25/17 10:32pm 12:35pm DONOVAN REED MD Departed Emergency Room [facility] 05/06/17 8:08am 8:45am ANTONY HERNANDEZ MD Discharged Inpatient (obs) [facility] 05/02/17 12:15am 11:45am DONOVAN REED MD Departed Emergency Room [facility] 05/01/17 9:29am 11:09am KADEN DUNCAN MD Discharged Inpatient [facility] 04/23/17 1:07pm 04/28/17 4:40pm DONOVAN REED MD
--- NOTE | 2018-01-02 17:40 | Diagnostic Imaging Report ---
PROCEDURE: Frontal and lateral views of the chest. COMPARISON: 12/29/17 INDICATIONS: SHORTNESS OF BREATH FINDINGS: Lines/tubes: Stable triple lead right chest wall cardiac device. Lungs and pleura: The lungs are well inflated. Central vascular congestion. Unchanged left midlung linear atelectasis or scarring. There is also left basilar hazy opacities. Possible trace bilateral pleural effusions. Right middle lobe hazy opacities. Heart and mediastinum: The cardiac silhouette is enlarged. Bones: No acute bony abnormality. Partially imaged right shoulder arthroplasty. IMPRESSION: No significant interval change from prior exam. Central vascular congestion. Right middle lobe and left base hazy opacities, representing atelectasis and/or pneumonia. Possible trace bilateral pleural effusions. Dictated by: Adelso Solis M.D. on 01/02/2018 at 17:39 Electronically approved by: Adelso Solis M.D. on 01/02/2018 at 17:39
[2018-01-02 19:05] LABS: BASOPHILS # (AUTO) 0.1 (0.0-0.1); BASOPHILS % 0.9 % (0.0-1.0); EOSINOPHILS # (AUTO) 0.2 (0.0-0.4); EOSINOPHILS % 2.7 % (0.0-6.0); HEMATOCRIT 36.1 % (38.2-49.6); HEMOGLOBIN 13.3 g/dL (14.0-18.0); LYMPHOCYTES # (AUTO) 1.8 (1.0-3.2); LYMPHOCYTES % 32.1 % (18.0-39.1); MEAN CORPUSCULAR HEMOGLOBIN 38.1 pg (28-32); MEAN CORPUSCULAR HGB CONC 36.8 g/dL (31-35); MEAN CORPUSCULAR VOLUME 103.4 fL (81-99); MONOCYTES # (AUTO) 0.5 (0.2-0.8); MONOCYTES % 9.2 % (4.4-11.3); NEUTROPHILS % 54.9 % (38.7-80.0); PLATELET COUNT 127 x10e3/uL (140-360); RED BLOOD COUNT 3.49 x10e6/uL (4.3-5.7); RED CELL DISTRIBUTION WIDTH 14.1 % (11.7-14.4)
[2018-01-02 19:15] LABS: INR 1.51; PROTHROMBIN TIME 17.1 seconds (11.9-14.5)
[2018-01-02 19:16] LABS: PARTIAL THROMBOPLASTIN TIME 33.3 seconds (23.8-35.5)
[2018-01-02 19:25] LABS: ALANINE AMINOTRANSFERASE 26 IU/L (0-55); ALBUMIN 3.5 g/dL (3.5-5.0); ALBUMIN/GLOBULIN RATIO 0.8 (0.8-2.0); ALKALINE PHOSPHATASE 82 IU/L (40-150); ANION GAP 17.6 mmol/L (8-16); BLOOD UREA NITROGEN 16 mg/dL (7-26); BUN/CREATININE RATIO 19 (6-25); CALCIUM 8.7 mg/dL (8.4-10.2); CARBON DIOXIDE 19 mmol/L (22-29); CHLORIDE 91 mmol/L (98-107); CREATINE KINASE 194 IU/L (30-200); CREATININE, SERUM 0.86 mg/dL (0.72-1.25); EST GLOMERULAR FILTRATION RATE > 60 ML/MIN (60-); GLUCOSE 61 mg/dL (74-118); SODIUM 123 mmol/L (136-145)
[2018-01-02 19:30] LABS: POTASSIUM 4.6 mmol/L (3.5-5.1)
[2018-01-02 23:20] VITALS: BP 121/70
[2018-01-02 23:48] VITALS: BP 121/70
[2018-01-03] VITALS (7 sets, daily range): BP systolic 97–119; BP diastolic 53–81
[2018-01-03 06:49] LABS: BASOPHILS % 0.6 % (0.0-1.0); EOSINOPHILS # (AUTO) 0.2 (0.0-0.4); EOSINOPHILS % 4.4 % (0.0-6.0); HEMATOCRIT 36.2 % (38.2-49.6); HEMOGLOBIN 12.6 g/dL (14.0-18.0); LYMPHOCYTES # (AUTO) 1.7 (1.0-3.2); LYMPHOCYTES % 31.5 % (18.0-39.1); MEAN CORPUSCULAR HGB CONC 34.8 g/dL (31-35); MEAN CORPUSCULAR VOLUME 106.2 fL (81-99); MONOCYTES # (AUTO) 0.5 (0.2-0.8); MONOCYTES % 9.8 % (4.4-11.3); NEUTROPHILS # (AUTO) 2.8 (2.1-6.9); NEUTROPHILS % 53.3 % (38.7-80.0); PLATELET COUNT 137 x10e3/uL (140-360); RED BLOOD COUNT 3.41 x10e6/uL (4.3-5.7); RED CELL DISTRIBUTION WIDTH 14.1 % (11.7-14.4)
[2018-01-03 07:11] LABS: ANION GAP 12.9 mmol/L (8-16); BLOOD UREA NITROGEN 15 mg/dL (7-26); BUN/CREATININE RATIO 19 (6-25); CALCIUM 8.4 mg/dL (8.4-10.2); CARBON DIOXIDE 24 mmol/L (22-29); CHLORIDE 93 mmol/L (98-107); CREATINE KINASE 133 IU/L (30-200); EST GLOMERULAR FILTRATION RATE > 60 ML/MIN (60-); GLUCOSE 101 mg/dL (74-118); POTASSIUM 3.9 mmol/L (3.5-5.1); SODIUM 126 mmol/L (136-145)
[2018-01-03] MEDS ORDERED: GUAIFENESIN 600MG/DEXTROMETHORPHAN 30MG TABSR PO PRN (07:15)
--- NOTE | 2018-01-03 07:50 | History and Physical ---
PRIMARY CARE PHYSICIAN: Dr. Michael Fletcher CHIEF COMPLAINT: Shortness of breath and leg swelling. HISTORY OF PRESENT ILLNESS: This is a 62-year-old man with the history of systolic congestive heart failure, and recent admission in October 2017 with diarrhea and melena, as well as acute exacerbation acute systolic congestive heart failure, now developing worsening leg swelling and shortness of breath. He denies any chest pain, denies any fever, chills. Imaging showed bilateral pleural effusion. He was admitted for further evaluation and management. PAST MEDICAL HISTORY: Systolic congestive heart failure, left ventricular ejection fraction 20%-25%, status post AICD placement, atrial fibrillation, hypertension, history of diarrhea, melena, hyponatremia. PAST SURGICAL HISTORY: Bilateral knee surgery, back surgery, AICD placement. ALLERGIES: PER ELECTRONIC MEDICAL RECORD. FAMILY HISTORY: Hypertension. SOCIAL HISTORY: Patient denies any alcohol, illicits, cigarettes. MEDICATION: Per electronic medical record. REVIEW OF SYSTEMS: Denies any chest pain. PHYSICAL EXAMINATION VITAL SIGNS: Have been reviewed. GENERAL: A tired-appearing woman resting in bed. HEENT: Anicteric. Pupils reactive to light. No oral lesions. CARDIOVASCULAR: Normal S1, S2. LUNGS: He has reduced breath sounds at the bases, fine crackles. ABDOMEN: Soft, nontender, nondistended. EXTREMITIES: He has 1 to 2+ leg edema, left worse than right. MUSCULOSKELETAL: He has right-sided AICD palpable subcutaneously. SKIN: Dry. PSYCHIATRIC: Normal affect. LABS: Reviewed. MEDICATIONS: Reviewed. ASSESSMENT: A 62-year-old man. 1. Acute exacerbation of systolic congestive heart failure, left ventricular ejection fraction 20%-25%. He has automatic implantable cardioverter defibrillator in place. We need to diurese the patient. Monitor the renal function while is being diuresed. Continue for the intravenous Lasix b.i.d. Continue also spironolactone b.i.d. 2. Hyponatremia. Will follow up. 3. Bilateral pleural effusion secondary to chronic obstructive pulmonary disease exacerbation and congestive heart failure. Diurese and reassess. 4. Normocytic anemia, mild. Will follow. 5. Thrombocytopenia, mild. Will follow up with anticoagulation . 6. Chronic atrial fibrillation. His international normalized ratio is 1.51. Will continue beta-jerardo, digoxin. Unclear as to whether the patient has been on anticoagulation. Will defer to cardiology regarding management. In the meantime, will treat him with aspirin 325 mg daily. Patient may not be on anticoagulation due to his recent melena and gastrointestinal bleed. Will use aspirin 81 mg only. 7. Recent pneumonia. 8. Thrombocytopenia. Will monitor. 9. Prophylaxis. Will use sequential compression devices. Will defer to cardiology regarding anticoagulation, but likely patient unable to get anticoagulation due to recent gastrointestinal bleed. 10. Disposition: Monitor closely. Follow ins and outs. 11. Cardiology consultation. Job#: [id number] CQ
--- NOTE | 2018-01-03 08:23 | Diagnostic Imaging Report ---
PROCEDURE: CHEST SINGLE (PORTABLE) COMPARISON: [facility], DX, CHEST 2 VIEWS, 01/02/2018, 17:15. INDICATIONS: SHORTNESS, CHF FINDINGS: LUNGS: Increased pulmonary vascular congestion with mild edema. PLEURA: Small bilateral pleural effusions; left greater than right. HEART \T\ MEDIASTINUM: The heart is enlarged. Unchanged right chest wall lead cardiac device. BONES \T\ SOFT TISSUES: No acute findings. Right humeral prosthesis partially visualized. CONCLUSION: Cardiomegaly with increased pulmonary vascular congestion/edema. Bladimir Chaparro D.O. Dictated by: Bladimir Chaparro D.O. on 01/03/2018 at 8:22 Electronically approved by: Bladimir Chaparro D.O. on 01/03/2018 at 8:22
[2018-01-03] MEDS: FUROSEMIDE INJ 10 MG/ML 4 ML VIAL IV SCH ×2 (08:48→16:58)
--- NOTE | 2018-01-03 09:16 | Consultation ---
DATE OF CONSULTATION: January 02, 2018 REASON FOR CONSULTATION: CHF exacerbation. CONSULTING PHYSICIAN: Dr. Reji Quevedo HPI: This is a pleasant 62-year-old male that presented with bilateral lower extremity edema. According to the patient, for the last one month, he noted increased bilateral lower extremity edema. He has been taking all his medications and the swelling is not going away. Then, he decided to come in for evaluation. He has a history of systolic CHF and had a recent ICD placement in March 2017 that has never followed up in the clinic and the device has not been checked since implantation. He denies any chest pain, any palpitation, any dizziness or shortness of breath. Troponin was negative. EKG showed demand pacing and BNP 2239. PAST MEDICAL HISTORY: CAD, chronic systolic CHF, nonischemic dilated cardiomyopathy, hypertension, AFib, nonsustained V tach, TIA, anemia, melena. PAST SURGICAL HISTORY: He stated having 21 surgeries in the past which include multiple back surgeries, bilateral cataract surgery removal from the eyes, bilateral elbow surgery, bilateral shoulder surgery, lower extremity surgeries, ICD, and pericardial window. FAMILY HISTORY: Positive for hypertension and CAD. SOCIAL HISTORY: No smoking, no drinking. He lives at home with the and they have recently relocated from [place] to [place]. MEDICATIONS: See med list. ALLERGIES: HE IS ALLERGIC TO SUVOREXANT. REVIEW OF THE SYSTEMS: Negative except those mentioned above. PHYSICAL EXAMINATION: VITAL SIGNS: Temperature 97, heart rate 88, blood pressure 100/53, respiration 18, oxygen saturation 98% on room air. GENERAL: He is awake, alert, and oriented x3, and he is ambulating in the hallway. HEENT: Mucous membranes moist. NECK: Supple. LUNGS: Bilateral with decreased breath sounds. CARDIOVASCULAR: Irregular. ABDOMEN: Soft. NEUROLOGICAL: Intact. EXTREMITIES: Bilateral lower extremity with trace edema. LABS: Sodium 126, potassium 3.9, chloride 93, CO2 24, BUN 15, creatinine 0.80, glucose 101. White blood cell 5.23, hemoglobin 12.6, hematocrit 36.2, platelet 137,000. PT 17.1, PTT 33.3, INR 1.51. IMPRESSION: 1. Congestive heart failure exacerbation. 2. Coronary artery disease with implantable cardioverter-defibrillator. 3. Hyponatremia. 4. Hypertension. 5. History of atrial fibrillation. 6. History of nonsustained ventricular tachycardia. 7. History of chronic obstructive pulmonary disease. ASSESSMENT AND PLAN: Will go ahead and get an echocardiogram to assess the LV and the valve function. Will put him on fluid restriction 1.5 L. Since implantation, ICD has not been checked. Will get [employer] to interrogate it and make sure it is functioning okay. Resume his home medications. Refused p.o. anticoagulation, continue diuresis. Further cardiac workup pending clinical course. Thank you for this consultation. Dictated by: Ezequiel Restrepo NP Job#: [id number]
[2018-01-03] MEDS: DIGOXIN 0.125 MG TAB PO SCH (09:36)
[2018-01-03] MEDS: ASPIRIN 325 MG TAB PO SCH (09:36)
[2018-01-03] MEDS: CARVEDILOL 12.5 MG TAB PO SCH ×2 (09:36→16:59)
[2018-01-03] MEDS: SPIRONOLACTONE 25 MG TAB PO SCH ×2 (09:36→16:58)
[2018-01-03 15:06] LABS: CREATINE KINASE MB 4.6 ng/mL (0-5.0)
[2018-01-04] VITALS (7 sets, daily range): BP systolic 97–147; BP diastolic 57–101
[2018-01-04] MEDS: SPIRONOLACTONE 25 MG TAB PO SCH ×2 (08:09→17:30)
[2018-01-04] MEDS: FUROSEMIDE INJ 10 MG/ML 4 ML VIAL IV SCH ×3 (08:09→17:30)
[2018-01-04] MEDS: ASPIRIN 325 MG TAB PO SCH (08:09)
[2018-01-04] MEDS: CARVEDILOL 12.5 MG TAB PO SCH ×2 (08:10→17:30)
[2018-01-04] MEDS: DIGOXIN 0.125 MG TAB PO SCH (08:10)
[2018-01-04 09:55] LABS: BASOPHILS % 0.6 % (0.0-1.0); EOSINOPHILS # (AUTO) 0.2 (0.0-0.4); EOSINOPHILS % 3.3 % (0.0-6.0); HEMATOCRIT 33.8 % (38.2-49.6); HEMOGLOBIN 12.1 g/dL (14.0-18.0); LYMPHOCYTES # (AUTO) 1.3 (1.0-3.2); MEAN CORPUSCULAR HEMOGLOBIN 38.2 pg (28-32); MEAN CORPUSCULAR HGB CONC 35.8 g/dL (31-35); MEAN CORPUSCULAR VOLUME 106.6 fL (81-99); MONOCYTES # (AUTO) 0.5 (0.2-0.8); MONOCYTES % 8.9 % (4.4-11.3); NEUTROPHILS # (AUTO) 3.2 (2.1-6.9); NEUTROPHILS % 61.8 % (38.7-80.0); PLATELET COUNT 116 x10e3/uL (140-360); RED BLOOD COUNT 3.17 x10e6/uL (4.3-5.7); RED CELL DISTRIBUTION WIDTH 14.3 % (11.7-14.4)
[2018-01-04 10:11] LABS: ANION GAP 13.8 mmol/L (8-16); BLOOD UREA NITROGEN 13 mg/dL (7-26); BUN/CREATININE RATIO 18 (6-25); CALCIUM 8.5 mg/dL (8.4-10.2); CARBON DIOXIDE 27 mmol/L (22-29); CHLORIDE 95 mmol/L (98-107); CREATININE, SERUM 0.74 mg/dL (0.72-1.25); EST GLOMERULAR FILTRATION RATE > 60 ML/MIN (60-); GLUCOSE 93 mg/dL (74-118); POTASSIUM 3.8 mmol/L (3.5-5.1); SODIUM 132 mmol/L (136-145)
[2018-01-04] MEDS ORDERED: SODIUM CHLORIDE 1 GM TAB PO ONE (10:15)
--- NOTE | 2018-01-04 17:23 | Diagnostic Imaging Report ---
PROCEDURE:US CHEST (INCL MEDIASTINUM) COMPARISON:None. INDICATIONS:PLEURAL EFFUSION FINDINGS:Moderate bilateral pleural effusions are observed, left greater than right. Bibasilar subsegmental compressive atelectasis. CONCLUSION:Bilateral moderate volume pleural effusions. Gerardo Goncalves M.D. Dictated by: Gerardo Goncalves M.D. on 01/04/2018 at 17:24 Electronically approved by: Gerardo Goncalves M.D. on 01/04/2018 at 17:24
[2018-01-04] MEDS: TEMAZEPAM 15 MG CAP PO PRN (20:13)
[2018-01-05] VITALS: BP 119/77
[2018-01-05 01:32] VITALS: BP 119/77
[2018-01-05 06:46] LABS: BASOPHILS % 0.5 % (0.0-1.0); EOSINOPHILS # (AUTO) 0.2 (0.0-0.4); EOSINOPHILS % 5.6 % (0.0-6.0); HEMATOCRIT 31.4 % (38.2-49.6); HEMOGLOBIN 11.1 g/dL (14.0-18.0); LYMPHOCYTES # (AUTO) 1.4 (1.0-3.2); LYMPHOCYTES % 32.8 % (18.0-39.1); MEAN CORPUSCULAR HEMOGLOBIN 38.3 pg (28-32); MEAN CORPUSCULAR HGB CONC 35.4 g/dL (31-35); MEAN CORPUSCULAR VOLUME 108.3 fL (81-99); MONOCYTES # (AUTO) 0.5 (0.2-0.8); MONOCYTES % 10.5 % (4.4-11.3); NEUTROPHILS # (AUTO) 2.2 (2.1-6.9); NEUTROPHILS % 50.4 % (38.7-80.0); PLATELET COUNT 101 x10e3/uL (140-360); RED CELL DISTRIBUTION WIDTH 14.6 % (11.7-14.4)
[2018-01-05 07:22] LABS: ANION GAP 13.5 mmol/L (8-16); BLOOD UREA NITROGEN 17 mg/dL (7-26); BUN/CREATININE RATIO 20 (6-25); CALCIUM 8.4 mg/dL (8.4-10.2); CARBON DIOXIDE 26 mmol/L (22-29); CHLORIDE 97 mmol/L (98-107); CREATININE, SERUM 0.84 mg/dL (0.72-1.25); EST GLOMERULAR FILTRATION RATE > 60 ML/MIN (60-); GLUCOSE 83 mg/dL (74-118); POTASSIUM 3.5 mmol/L (3.5-5.1); SODIUM 133 mmol/L (136-145)
[2018-01-05 07:44] VITALS: BP 114/67
[2018-01-05] MEDS: CARVEDILOL 12.5 MG TAB PO SCH (08:25)
[2018-01-05] MEDS: SPIRONOLACTONE 25 MG TAB PO SCH (08:25)
[2018-01-05] MEDS: ASPIRIN 325 MG TAB PO SCH (08:25)
[2018-01-05] MEDS: FUROSEMIDE INJ 10 MG/ML 4 ML VIAL IV SCH (08:25)
[2018-01-05] MEDS: DIGOXIN 0.125 MG TAB PO SCH (08:25)
[2018-01-05] MEDS: TEMAZEPAM 15 MG CAP PO PRN (08:25)
[2018-01-05 11:41] VITALS: BP 105/59
[2018-01-05] MEDS ORDERED: MUCINEX DM ER1 EACH PO (11:48)
[2018-01-05] MEDS ORDERED: ALDACTONE25 MG PO (11:48)
[2018-01-05] MEDS ORDERED: ASPIRIN325 MG PO (11:48)
--- NOTE | 2018-01-05 18:06 | Discharge Summary ---
ADMISSION DIAGNOSES 1. Acute exacerbation of systolic congestive heart failure. 2. Hyponatremia. 3. Bilateral pleural effusion secondary to chronic obstructive pulmonary disease and congestive heart failure. 4. Mild anemia. 5. Thrombocytopenia. 6. Chronic atrial fibrillation. DISCHARGE DIAGNOSES 1. Acute exacerbation of systolic congestive heart failure. 2. Hyponatremia. 3. Bilateral pleural effusion secondary to chronic obstructive pulmonary disease and congestive heart failure. 4. Mild anemia. 5. Thrombocytopenia. 6. Chronic atrial fibrillation. 7. Rule out deep venous thrombosis. HISTORY: The patient has a history of systolic congestive heart failure with EF of 20% to 25%, status post AICD placement, atrial fibrillation, hypertension, history of diarrhea, melena and hyponatremia. HOSPITAL COURSE: The patient was started on IV Lasix b.i.d. and continued his Aldactone from home, which was increased to b.i.d. His AICD was interrogated with no issues. The patient was given salt tabs for his hyponatremia. For the effusion again the patient on diuretics. On admission, the patient had a chest x-ray that showed central vascular congestion, right middle lobe and left base hazy opacities representing atelectasis and/or pneumonia, possible trace bilateral pleural effusion. Followup chest x-ray the next day showed cardiomegaly with increased vascular congestion/edema. Ultrasound of the chest showed bilateral moderate pleural effusion. The patient had +1 and +2 bilateral lower extremity edema with the left being greater than the right. The patient had a venous Doppler on the left which was negative for DVT. The patient diuresed for a couple of days. Per cardiology, he is okay to go home. The patient is ambulating in the hallway, telling stories to the staff. He hardly stays in his room. He is not on oxygen. He is ready to go home. He does not need PT or oxygen at home. His vital signs were stable. He is afebrile. The patient will follow up with Dr. Thomson in 1-2 weeks and primary care in 1-2 weeks. Dictated by: Manuela Morrow NP DONOVAN REED MD Job#: [id number] [facility]
== END 2018-01-05 14:25 | disposition home or self-care (01) | DRG 292 ==
LOC: ER 16:40 → ERHOLD 21:35 → IMCU 21:41 → OBSVTOIN 01-04 09:55 → MED/SURG3 01-04 11:57
PROVIDERS: ADMIT Internal Medicine; ATTEND Internal Medicine
DX: I11.0 Hypertensive heart disease with heart failure (principal); E87.1 Hypo-osmolality and hyponatremia; D69.6 Thrombocytopenia, unspecified; I31.3 Pericardial effusion (noninflammatory); J44.1 Chronic obstructive pulmonary disease with (acute) exacerbation; I50.23 Acute on chronic systolic (congestive) heart failure; Z79.01 Long term (current) use of anticoagulants; Z95.810 Presence of automatic (implantable) cardiac defibrillator; I48.2 Chronic atrial fibrillation; D64.9 Anemia, unspecified
CPT/HCPCS: 36415; 71045; 71046; 76604; 80048; 80053; 82550; 82553; 82948; 83735; 83880; 84484; 85025; 85610; 85730; 93005; 93306; 93971; 99284; G0378; J1940

== ENCOUNTER 2018-01-16 20:10 | Observation (INO) | payer MEDICARE ==
[~2018-01-16] VITALS: Ht 175.3 cm; Wt 75.7 kg
[~2018-01-16 20:10] MED LIST changes: +ASPIRIN325 MG PO
--- OUTSIDE RECORDS SUMMARY | 2018-01-16 20:13 | XMS REPORT | Continuity of Care Document ---
Author Author [facility] Organization [facility] Address [address] [place] [address] Phone Unavailable Care Team Providers Care Microbiology Instructor Name Role Phone YAYA HUNTER DO PCP Insurance Providers Guarantor Tacho Nevarez Address [address] [place] [address] Email [email or web address] Payer [employer] Medicare Complete Policy Number [id number] Subscriber's Name Tacho Nevarez Relationship 18 Self / Same As Patient Group Number [id number] Group Name [id number] Effective Date 17 Advance Directives Directive Response Recorded Date/Time Does the patient have an advance directive? No 01/02/18 10:15pm If yes, is advance directive on file with [facility]? No 01/02/18 10:15pm If not on file with [facility] will patient provide a copy? No 01/02/18 10:15pm Do you have a Directive to Physician? No 01/02/18 5:17pm Do you have a Medical Power of Silk Screen Cutter? No 01/02/18 5:17pm Do you have an out of hospital Do Not Resuscitate Order? No 01/02/18 5:17pm Do you have any special needs we should be aware of? No 01/02/18 5:17pm Do you have a support person here with you today? Yes 01/02/18 5:17pm Did patient receive Notice of Privacy Practices? Yes 01/02/18 5:17pm Did patient receive patient rights and responsibilities? Yes 01/02/18 5:17pm Problems Medical Problem Onset Date Status CHF (congestive heart failure) Unknown CHF (congestive heart failure) Unknown Hyponatremia Unknown TIA (transient ischemic attack) Unknown Medications Current Home Medications Medication Dose Units Route Directions Days Qty Instructions Start Date Aspirin 325 Mg Tablet 325 Mg Oral Daily 30 Days 01/05/18 Carvedilol 3.125 Mg Tablet 6.25 Mg Oral Twice A Day 60 Tab Cholestyramine (With Sugar) (Questran Packet) 4 Gm Packet 4 Gm Oral Daily as needed for Diarrhea 3 Days 11/15/17 Digoxin 125 Mcg Tablet 0.125 Mg Oral Daily 30 Tab Furosemide (Lasix) 40 Mg Tablet 40 Mg Oral Twice A Day 60 Tab 07/28 Guaifenesin/Dextromethorphan (Mucinex Dm Er 600-30 Mg Tablet) 1 Each Tab.er.12h 1 Each Oral Every 12 Hours as needed for Cough 10 Days Hydrocodone Bit/Acetaminophen ([place] 5-325 Tablet) 1 Each Tablet 1 Each Oral Twice A Day as needed for Pain Potassium Chloride 20 Meq Tab.er.prt 20 Meq Oral Daily Spironolactone (Aldactone) 25 Mg Tablet 25 Mg Oral Twice A Day 30 Days 01/05/18 Temazepam (Restoril) 15 Mg Capsule 15 Mg Oral Bedtime as needed for Insomnia 15 07/28/17 Past Home Medications Medication Directions Ordered Status Amiodarone Hcl 200 Mg Tablet, 1 Tab Oral Daily Discontinued Amiodarone Hcl 200 Mg Tablet, 200 Mg Oral Twice A Day Discontinued Azithromycin (Zithromax) 500 Mg Tablet, 500 Mg Oral Daily 11/15/17 Discontinued Benzonatate 100 Mg Capsule, 100 Mg Oral Three Times A Day Discontinued Ceftin , 500 Mg Oral Twice A Day 11/15/17 Discontinued Digoxin 125 Mcg Tablet, 0.125 Mg Oral Daily Discontinued Doxycycline Hyclate 100 Mg Capsule, 100 Mg Oral Every 12 Hours Discontinued Furosemide 40 Mg Tablet, 40 Mg Oral Bid@06,18 04/28/17 Discontinued Furosemide 40 Mg Tablet, 20 Mg Oral Daily Discontinued Guaifenesin/Dextromethorphan (Mucinex Dm Er 600-30 Mg Tablet) 1 Each Tab.er.12h , 1 Each Oral Every 12 Hours as needed for Nasal Congestion 11/15/17 Discontinued Hydrocodone 37.5 Prn , Discontinued Lisinopril 2.5 Mg Tablet, 5 Mg Oral Daily 04/28/17 Discontinued Methylprednisolone Sod Succ 40 Mg Vial, 4 Mg Oral Discontinued Minocycline Hcl 50 Mg Capsule, 100 Mg Oral Every 12 Hours Discontinued Potassium Chloride 20 Meq Tab.er.prt, 20 Meq Oral Twice A Day Discontinued Potassium Chloride (Klor-Con 10) 10 Meq Tablet.er, 1 Tab Oral Twice A Day Discontinued Spironolactone (Aldactone) 25 Mg Tablet, 25 Mg Oral Daily 07/28/17 Discontinued Social History Social History Problem Response Recorded Date/Time Onset Date Status Hx Psychiatric Problems No 01/02/2018 10:15pm Not Applicable Not Applicable Hx Eating Disorder No 01/02/2018 10:15pm Not Applicable Not Applicable Hx Substance Use Disorder No 01/02/2018 10:15pm Not Applicable Not Applicable Hx Depression No 01/02/2018 10:15pm Not Applicable Not Applicable Hx Alcohol Use No 01/02/2018 10:15pm Not Applicable Not Applicable Hx Substance Use Treatment No 01/02/2018 10:15pm Not Applicable Not Applicable Hx Physical Abuse No 01/02/2018 10:15pm Not Applicable Not Applicable Smoking Status Start Date Stop Date Never Smoker Hospital Discharge Instructions No hospital discharge instruction information available. Plan of Care Discharge Date 01/05/18 2:25pm Disposition HOME, SELF-CARE Instructions/Education Provided Congestive Heart Failure Prescriptions See Medication Section Referrals RENU COLEMAN MD (Cardiology) Order Date: 1-2 Weeks Entered Date: 01/05/2018 11:50am Address: [address] [place] [id number] Additional Instructions/Education F/U WITH PCP IN 1-2 WEEKS LIMIT FLUIDS TO 1.2 LITERS/DAY Functional Status Query Response Date Recorded Assistive Devices None January 02, 2018 11:48pm Ambulation Ability Independent January 02, 2018 11:48pm Toileting Ability Independent January 04, 2018 1:43pm Allergies, Adverse Reactions, Alerts Allergen Type Severity Reaction Status Last Updated suvorexant Allergy Intermediate SWELLING Active 07/25/17 Immunizations No immunization information available. Vital Signs Acute Vital Signs Vital Response Date/Time Temperature (Fahrenheit) 96.5 degrees F (97.6 - 99.5) 01/05/2018 11:41am Pulse Pulse Rate (adult) 80 bpm (60 - 90) 01/05/2018 11:41am Respiratory Rate 20 bpm (12 - 24) 01/05/2018 11:41am Blood Pressure 105/59 mm Hg 01/05/2018 11:41am Height 5 ft 9 in 01/02/2018 10:15pm Weight 167.44 lb 01/05/2018 12:45am Body Mass Index 24.7 kg/m^2 01/05/2018 12:45am Results Laboratory Results Test Name Result Units Flags Reference Collection Date/Time Result Date/ Time Comments Urine Total Volume 2450 ml/24hr H 800-2000 04/23/2017 1:40pm 04/24/2017 2:00pm Urine Random Sodium 64 mmol/L 04/23/2017 1:40pm 04/24/2017 2:10pm Urine Sodium 24 Hour 156 MMOL/24H 40-220 04/23/2017 1:40pm 04/24/2017 2 :10pm Lactic Acid Level 12.8 MG/DL 4.5-19.8 05/01/2017 [...] L 3.9-4.7 05/03/2017 6:00am 05/03/2017 7: 13am Phosphorus Level 3.2 MG/DL 2.3-4.7 07/27/2017 6:25am 07/27/2017 7:10am Vitamin B12 Level 479 pg/mL 213-816 07/28/2017 6:10am 07/28/2017 8: 24am Urine Color YELLOW YELLOW 11/10/2017 9:00am 11/10/2017 10:01am Urine Clarity CLEAR CLEAR 11/10/2017 9:00am 11/10/2017 10:01am Urine Specific [place] 1.015 1.010-1.025 11/10/2017 9:00am 2017 10:01am Urine [...] NEGATIVE NEGATIVE 11/10/2017 10: 30am 11/10/2017 11:07am Free Thyroxine 0.95 ng/dL 0.8-1.8 11/12/2017 7:30am 11/12/2017 9:21am Thyroid Stimulating Hormone (TSH) 2.319 uIU/mL 0.350-4.940 11/12/2017 7: 30am 11/12/2017 9:21am Digoxin Level 0.54 ng/mL L 0.8-2.0 11/10/2017 8:56am 11/10/2017 10:36am Stool Occult Blood NEGATIVE NEGATIVE 11/13/2017 6:15am 11/13/2017 9: 09am Clostridium Difficile Toxin A & B NEGATIVE NEGATIVE 11/13/2017 6:15am 11/13/2017 3:18pm Testing on stool aspirate specimens is outside workers compensation claims specialist claims since specimen type not validated on this assay. White Blood Count 4.30 x10e3/uL L 4.8-10.8 01/05/2018 6:1501/05/2018 6:51am Red Blood Count 2.90 x10e6/uL L 4.3-5.7 01/05/2018 6:1501/05/2018 6: 51am Hemoglobin 11.1 g/dL L 14.0-18.0 01/05/2018 6:1501/05/2018 6:51am Hematocrit 31.4 % L 38.2-49.6 01/05/2018 6:1501/05/2018 6:51am Mean Corpuscular Volume 108.3 fL H 81-99 01/05/2018 6:1501/05/2018 6: 51am Mean Corpuscular Hemoglobin 38.3 pg H 28-32 01/05/2018 6:152017 6:51am Mean Corpuscular Hemoglobin Concent 35.4 g/dL H 31-35 01/05/2018 6:1501/05/2018 6:51am Red Cell Distribution Width 14.6 % H 11.7-14.4 01/05/2018 6:152017 6:51am Platelet Count 101 x10e3/uL L 140-360 01/05/2018 6:1501/05/2018 6: 51am Neutrophils (%) (Auto) 50.4 % 38.7-80.0 01/05/2018 6:1501/05/2018 6: 51am Lymphocytes (%) (Auto) 32.8 % 18.0-39.1 01/05/2018 6:1501/05/2018 6: 51am Monocytes (%) (Auto) 10.5 % 4.4-11.3 01/05/2018 6:15am 01/05/2018 6: 51am Eosinophils (%) (Auto) 5.6 % 0.0-6.0 01/05/2018 6:1501/05/2018 6: 51am Basophils (%) (Auto) 0.5 % 0.0-1.0 01/05/2018 6:1501/05/2018 6:51am IM GRANULOCYTES % 0.2 % 0.0-1.0 01/05/2018 6:1501/05/2018 6:51am Neutrophils # (Auto) 2.2 2.1-6.9 01/05/2018 6:1501/05/2018 6:51am Lymphocytes # (Auto) 1.4 1.0-3.2 01/05/2018 6:1501/05/2018 6:51am Monocytes # (Auto) 0.5 0.2-0.8 01/05/2018 6:1501/05/2018 6:51am Eosinophils # (Auto) 0.2 0.0-0.4 01/05/2018 6:15am 01/05/2018 6:51am Basophils # (Auto) 0.0 0.0-0.1 01/05/2018 6:1501/05/2018 6:51am Absolute Immature Granulocyte (auto 0.01 x10e3/uL 0-0.1 01/05/2018 6: 15am 01/05/2018 6:51am Prothrombin Time 17.1 seconds H 11.9-14.5 01/02/2018 6:05pm 01/02/2018 7 :21pm Prothromb Time International Ratio 1.51 01/02/2018 6:05pm 2017 7:21pm Oral Anticoagulant Therapy INR Values: 1. Low Intensity Therapy 1.5 - 2.0 2. Moderate Intensity Therapy 2.0 - 3.0 3. High Intensity Therapy(1) 2.5 - 3.5 4. High Intensity Therapy(2) 3.0 - 4.0 5. Panic Value INR > 5.0 Activated Partial Thromboplast Time 33.3 seconds 23.8-35.5 01/02/2018 6: 05pm 01/02/2018 7:21pm Sodium Level 133 mmol/L L 136-145 01/05/2018 6:15am 01/05/2018 7:39am Potassium Level 3.5 mmol/L 3.5-5.1 01/05/2018 6:15am 01/05/2018 7:39am Chloride Level 97 mmol/L L 98-107 01/05/2018 6:15am 01/05/2018 7:39am Carbon Dioxide Level 26 mmol/L 22-29 01/05/2018 6:15am 01/05/2018 7: 39am Anion Gap 13.5 mmol/L 8-16 01/05/2018 6:15am 01/05/2018 7:39am Blood Urea Nitrogen 17 mg/dL 7-01/05/2018 6:15am 01/05/2018 7:39am Creatinine 0.84 mg/dL 0.72-1.25 01/05/2018 6:15am 01/05/2018 7:39am BUN/Creatinine Ratio 20 6-01/05/2018 6:15am 01/05/2018 7:39am Estimat Glomerular Filtration Rate > 60 ML/MIN 60- 01/05/2018 6:15am 7:39am Ranges were taken from the National Kidney Disease Education Program and the National Kidney Foundation literature. Reference ranges: 60 or greater: Normal 16-59 (for 3 consecutive months): Chronic kidney disease 15 or less: Kidney failure Glucose Level 83 mg/dL 74-118 01/05/2018 6:15am 01/05/2018 7:39am Calcium Level 8.4 mg/dL 8.4-10.2 01/05/2018 6:15am 01/05/2018 7:39am Bedside Glucose 170 mg/dL H 70-120 01/03/2018 7:11pm 01/03/2018 7:19pm Meter ID: [id number] Magnesium Level 1.5 MG/DL 1.3-2.1 01/03/2018 6:15am 01/03/2018 8:24am Total Bilirubin 1.2 mg/dL 0.2-1.2 01/02/2018 6:05pm 01/02/2018 7:30pm Aspartate Amino Transf (AST/SGOT) 53 IU/L H 5-34 01/02/2018 6:05pm 01/02 7:30pm Alanine Aminotransferase (ALT/SGPT) 26 IU/L 0-55 01/02/2018 6:05pm 02/2018 7:30pm Total Protein 7.9 g/dL 6.5-8.1 01/02/2018 6:05pm 01/02/2018 7:30pm Albumin 3.5 g/dL 3.5-5.0 01/02/2018 6:05pm 01/02/2018 7:30pm Globulin 4.4 g/dL H 2.3-3.5 01/02/2018 6:05pm 01/02/2018 7:30pm Albumin/Globulin Ratio 0.8 0.8-2.0 01/02/2018 6:05pm 01/02/2018 7: 30pm Alkaline Phosphatase 82 IU/L 40-150 01/02/2018 6:05pm 01/02/2018 7: 30pm B-Type Natriuretic Peptide 2239.1 pg/mL H 0-100 01/02/2018 6:05pm 2017 7:31pm Creatine Kinase 130 IU/L 30-200 01/03/2018 2:20pm 01/03/2018 2:59pm Creatine Kinase MB 4.60 ng/mL 0-5.0 01/03/2018 2:20pm 01/03/2018 3: 06pm Troponin I 0.018 ng/mL 0-0.300 01/03/2018 2:20pm 01/03/2018 3:06pm Microbiology Results Procedure Source Organism/Result Collection Date/Time [...] single view Active 12/29/17 KADEN GRIER MD X-ray of chest, two views Active 01/02/18 KADEN DUNCAN MD Ultrasound of chest including mediastinum Active 01/04/18 SAVANNAH SEN [employer] INSERTER Encounters Encounter Location Arrival/Admit Date Discharge/Depart Date Attending Provider Discharged Inpatient [facility] 01/04/18 9:55am 01/05/18 2:25pm DONOVAN REED MD Departed Emergency Room [facility] 12/29/17 1:34pm 5:30pm KADEN GRIER MD Discharged Inpatient [facility] 11/10/17 11:31am 3:10pm DONOVAN REED MD Discharged Inpatient [facility] 07/25/17 10:32pm 12:35pm DONOVAN REED MD Departed Emergency Room [facility] 05/06/17 8:08am 8:45am ANTONY HERNANDEZ MD Discharged Inpatient (obs) [facility] 05/02/17 12:15am 11:45am DONOVAN REED MD Departed Emergency Room [facility] 05/01/17 9:29am 11:09am KADEN DUNCAN MD Discharged Inpatient [facility] 04/23/17 1:07pm 04/28/17 4:40pm DONOVAN REED MD
[2018-01-16 21:19] LABS: BASOPHILS % 0.6 % (0.0-1.0); EOSINOPHILS # (AUTO) 0.1 (0.0-0.4); EOSINOPHILS % 2.3 % (0.0-6.0); HEMATOCRIT 34.1 % (38.2-49.6); LYMPHOCYTES # (AUTO) 1.4 (1.0-3.2); LYMPHOCYTES % 25.7 % (18.0-39.1); MEAN CORPUSCULAR HEMOGLOBIN 37.7 pg (28-32); MEAN CORPUSCULAR HGB CONC 35.2 g/dL (31-35); MEAN CORPUSCULAR VOLUME 107.2 fL (81-99); MONOCYTES # (AUTO) 0.5 (0.2-0.8); MONOCYTES % 9.1 % (4.4-11.3); NEUTROPHILS # (AUTO) 3.3 (2.1-6.9); NEUTROPHILS % 62.1 % (38.7-80.0); PLATELET COUNT 121 x10e3/uL (140-360); RED BLOOD COUNT 3.18 x10e6/uL (4.3-5.7); RED CELL DISTRIBUTION WIDTH 14.5 % (11.7-14.4)
[2018-01-16 21:27] LABS: INR 1.77; PROTHROMBIN TIME 19.4 seconds (11.9-14.5)
[2018-01-16 21:35] LABS: ALBUMIN 3.4 g/dL (3.5-5.0); ALBUMIN/GLOBULIN RATIO 0.9 (0.8-2.0); ANION GAP 14.5 mmol/L (8-16); CREATININE, SERUM 1.35 mg/dL (0.72-1.25); POTASSIUM 3.5 mmol/L (3.5-5.1)
[2018-01-16 21:42] LABS: CREATINE KINASE MB 3.2 ng/mL (0-5.0)
--- NOTE | 2018-01-16 22:24 | Diagnostic Imaging Report ---
EXAM: CHEST SINGLE (PORTABLE), AP 1 view INDICATION: Fall, altered since fall COMPARISON: AP view of the chest January 03, 2018 FINDINGS: LINES/TUBES: Stable appearance of left approach cardiac device. LUNGS: Stable bilateral interstitial thickening and scattered atelectatic changes. PLEURA: Stable trace left pleural effusion. HEART AND MEDIASTINUM: Stable appearance. BONES AND SOFT TISSUES: No acute findings. IMPRESSION: No interval change in appearance of the chest. Signed by: Dr. Deepthi Funes M.D. on 01/16/2018 10:20 PM
--- NOTE | 2018-01-16 22:34 | Diagnostic Imaging Report ---
Examination: CT BRAIN WITHOUT CONTRAST History:Fall. Confusion. Comparison studies:Head CT performed May 01, 2017. Technique: Axial images were obtained from the skull base to the vertex. Coronal and sagittal images reconstructed from the axial data. Intravenous contrast: None Findings: Scalp: No abnormalities. Bones: No fractures, blastic or lytic lesions. Brain sulci: Mild volume loss for age. Ventricles: No hydrocephalus. Extra-axial space: No abnormalities. Parenchyma: Again demonstrated are patchy areas of hypoattenuation in the periventricular and subcortical white matter, nonspecific. No masses, hemorrhage, or acute or chronic cortical based vascular insults.. Sellar/suprasellar region: No abnormalities. Craniocervical junction: Patent foramen magnum. No Chiari one malformation. Incidental findings: Atherosclerotic calcification of the cavernous and supraclinoid internal carotid and V4 segments of the bilateral vertebral arteries. Impression: 1. No new or acute intracranial abnormality. No change from prior head CT performed May 01, 2017. 2. Unchanged mild volume loss for age. 3. Unchanged moderate chronic microvascular ischemic change. Signed by: Dr. Angelique Ramos M.D. on 01/16/2018 10:30 PM
--- NOTE | 2018-01-16 22:42 | Diagnostic Imaging Report ---
Examination: CT CERVICAL SPINE WITHOUT CONTRAST HISTORY:Fall. Neck injury. COMPARISON:None. TECHNIQUE: Multidetector helical axial images were obtained without contrast from the foramen magnum to T1. Coronal and sagittal reformatted images were done. Bone and soft tissue windows were evaluated. FINDINGS: Alignment:Normal alignment and lordosis. Vertebrae: Normal height and density. No acute fracture, infection or neoplasm. Disc space heights: Normal height. Caliber of spinal canal: Developmentally normal. Posterior fossa and craniocervical junction: Foramen magnum patent. No Chiari 1 malformation. Soft tissues: Atherosclerotic calcification of the bilateral carotid bifurcations. Partially visualized effusion of the left lung apex. Degenerative changes: Degenerative fusion of the C1-C2 joint. Severe bilateral facet arthropathy at C3-C4, C4-C5 with mild bilateral neural foraminal narrowing. There is no disc bulge/ herniation or canal stenosis. IMPRESSION: No acute abnormalities. Signed by: Dr. Angelique Ramos M.D. on 01/16/2018 10:38 PM
[2018-01-17] MEDS ORDERED: DIPHENOXYLATE-1 EACH PO (01:41)
[2018-01-17 03:02] LABS: BILIRUBIN,URINE NEGATIVE (NEGATIVE); CLARITY,URINE CLEAR (CLEAR); COLOR,URINE YELLOW (YELLOW); KETONES,URINE NEGATIVE (NEGATIVE); LEUKOCYTE ESTERASE ,URINE NEGATIVE (NEGATIVE); NITRITE,URINE NEGATIVE (NEGATIVE); URINE UROBILINOGEN 0.2 mg/dL (0.2 - 1)
[2018-01-17 03:03] LABS: PROTEIN,URINE DIPSTICK 1+ (NEGATIVE)
[2018-01-17] MEDS ORDERED: HALOPERIDOL LACTATE 5 MG/ML VIAL IV ONE (03:15)
[2018-01-17] MEDS ORDERED: HALOPERIDOL LACTATE 5 MG/ML VIAL ONE (03:16)
[2018-01-17 03:20] LABS: RBC,URINE 0-5 /HPF (0-5); WBC,URINE (MAN) 0-5 /HPF (0-5)
[2018-01-17] MEDS ORDERED: TEMAZEPAM 15 MG CAP PO PRN (03:30)
[2018-01-17] MEDS ORDERED: DIPHENOXYLATE/ATROPINE TAB PO PRN (03:30)
[2018-01-17] MEDS ORDERED: HYDROCODONE/APAP 5MG-325MG TAB PO PRN (03:30)
[2018-01-17] MEDS ORDERED: GUAIFENESIN 600MG/DEXTROMETHORPHAN 30MG TABSR PO PRN (03:30)
[2018-01-17] MEDS ORDERED: SODIUM CHLORIDE FLUSH 10 ML SYR INJ PRN (03:30)
[2018-01-17 04:01] LABS: CREATINE KINASE MB 2.5 ng/mL (0-5.0)
[2018-01-17 08:26] LABS: CHOL/HDL RATIO 2.9 (3.9-4.7)
--- NOTE | 2018-01-17 08:42 | History and Physical ---
PRIMARY CARE PHYSICIAN: Dr. Michael Fletcher CHIEF COMPLAINT: Left facial numbness and leg swelling. HISTORY OF PRESENT ILLNESS: This is a 62-year-old man with a history of systolic congestive heart failure now developing left facial numbness. He denies any blurred vision, slurred speech, focal limb weakness. Denies any dizziness. His numbness seems to have improved to some degree. This has been ongoing for a day or two. He also complains of leg swelling. He is admitted for further evaluation and management. Denies any chest pain. PAST MEDICAL HISTORY: Systolic congestive heart failure with left ventricular ejection fraction 20% to 25%, status post AICD, atrial fibrillation, hypertension, diarrhea, melena, hyponatremia, bilateral pleural effusions secondary to CHF, mild anemia, thrombocytopenia, pneumonia. PAST SURGICAL HISTORY: Bilateral knee surgery, back surgery, AICD placement. ALLERGIES: PER ELECTRONIC MEDICAL RECORD. FAMILY HISTORY AND SOCIAL HISTORY: The patient is . He has 2 children. No alcohol, illicits or cigarettes. MEDICATIONS: Per electronic medical record. REVIEW OF SYSTEMS: Denies any dizziness or chest pain. VITAL SIGNS: Reviewed. PHYSICAL EXAMINATION GENERAL: A tired-appearing man resting in bed. HEENT: Anicteric. Pupils are responsive to light. No oral lesions. CARDIOVASCULAR: Normal S1 and S2. LUNGS: Moderate breath sounds. ABDOMEN: Soft, nontender, nondistended. EXTREMITIES: He has 2+ leg edema in the left leg. He has trace edema in the right leg. SKIN: Dry. PSYCHIATRIC: Normal affect. NEUROLOGIC: Alert and oriented times 3. Moving all extremities. LABS: Reviewed. MEDICATIONS: Reviewed. ASSESSMENT AND PLAN: This is a 62-year-old man. 1. Transient ischemic attack. We will obtain a carotid ultrasound and echocardiogram. Physical therapy consultation and aspirin use. 2. Chronic atrial fibrillation. His heart rate is currently controlled. He is not on anticoagulation. He is on oxygen. Will defer to his aeronautical engineering teacher regarding the use of anticoagulants. He does have a history of melena. Unclear as to whether he had a significant GI bleed in the past. This may be a contraindication to the use of anticoagulants. Will continue aspirin at this time. 3. Chronic systolic congestive heart failure. His lungs are clear, but he does have leg edema. Will diurese the patient. 4. Acute kidney injury. Monitor renal function while he is being diuresed. 5. Microcytic anemia, mild. Will follow. 6. Prophylaxis: Will use heparin 5,000 q.12 and will use Pepcid. 7. Disposition: Continue Lasix q.12. Continue spironolactone for diuresis. Will obtain a lipid panel. Will continue aspirin full dose. Obtain a digoxin level. Will follow the carotid ultrasound that was ordered. Will contact physical therapy services. Job#: [id number]
[2018-01-17] MEDS: FUROSEMIDE 40 MG TAB PO SCH ×2 (10:31→17:23)
[2018-01-17] MEDS: SPIRONOLACTONE 25 MG TAB PO SCH ×2 (10:31→17:23)
[2018-01-17] MEDS: POTASSIUM CHLORIDE 20 MEQ TAB CR PO SCH (10:32)
[2018-01-17] MEDS: DIGOXIN 0.125 MG TAB PO SCH (10:32)
[2018-01-17] MEDS: HEPARIN SOD (PORCINE) 5,000 UNIT/ML VIAL SC SCH ×2 (10:32→21:17)
[2018-01-17] MEDS: CARVEDILOL 3.125 MG TAB PO SCH ×2 (10:33→17:23)
[2018-01-17] MEDS: ASPIRIN 325 MG TAB PO SCH (10:33)
[2018-01-17 12:24] LABS: CREATINE KINASE MB 2.2 ng/mL (0-5.0)
--- NOTE | 2018-01-17 13:07 | Diagnostic Imaging Report ---
Exam: Head CT without contrast History: Confusion, TIA Comparison studies: Head CT 01/16/2018 and 05/01/2017. Technique: Axial images were obtained from the skull base to the vertex. Coronal and sagittal images reconstructed from the axial data. Intravenous contrast: None Findings: Scalp: No abnormalities. Bones: No fractures, blastic or lytic lesions. Brain sulci: Mildly prominent. Ventricles: Mild compensatory dilatation. No hydrocephalus. Extra-axial spaces: No masses, no fluid collection. Parenchyma: No mass, acute hemorrhage or acute cortical vascular insults. Scattered discrete and confluent hypodensities throughout the supratentorial white matter are nonspecific but most compatible with chronic small vessel ischemic changes. Questionable age-indeterminate nonhemorrhagic insult in the right inferior jaye (series 400, image 27). Sellar/suprasellar region: No abnormalities. Craniocervical junction: Patent foramen magnum. No Chiari one malformation. Incidental findings: Atherosclerotic calcifications in the carotid siphons. Bilateral lens replacements related to previous cataract surgery. IMPRESSION: 1. No mass, acute hemorrhage or acute cortical vascular insults. 2. Questionable age-indeterminate lacunar insult in the right paramedian jaye. 3. No other changes from the previous head CT of 01/16/2018. 4. Mild generalized volume loss and moderate chronic microvascular ischemic changes. Signed by: Dr. Que Le M.D. on 01/17/2018 11:35 AM
[2018-01-17] MEDS: FAMOTIDINE 20 MG TAB PO SCH (15:12)
[2018-01-17 17:05] VITALS: BP 107/69
--- NOTE | 2018-01-17 17:25 | Consultation ---
DATE OF CONSULTATION: January 17, 2018, at 4:15 in the evening. NEUROLOGICAL CONSULTATION A patient of Dr. Reji Quevedo. REASON FOR CONSULTATION: TIA. HISTORY OF PRESENT ILLNESS: This 62-year-old male has multiple medical problems including congestive heart failure, status post AICD, atrial fibrillation, hypertension. Apparently in the last 2 days according to his , he has been somewhat confused. He has been falling a couple of times. He does not make sense, repetitions. No slurred speech, but he had trouble finding words. During this spell, he did not have any headaches, no chest pain, no palpitation, reason for why the patient was brought into the emergency room for further evaluation and management. At the time of this examination, the is here. The patient is feeling better. He is eating without any difficulties. PAST HISTORY: As I mentioned. He has congestive heart failure, has atrial fibrillation, hypertension, post AICD, anemia, thrombocytopenia. PAST SURGERY: Bilateral knee surgery, back surgery, AICD placement. ALLERGIES: NONE KNOWN. SOCIAL HISTORY: He does not smoke or drink. He is , lives with his . LIST OF MEDICATION: He has been on multiple medications including aspirin, carvedilol, digoxin, Aldactone, furosemide, temazepam. The aspirin he is taking 325 mg. FAMILY HISTORY: He has a strong family history of strokes and heart conditions. REVIEW OF SYSTEMS: All 12 steps negative except what is described above. GENERAL PHYSICAL EXAMINATION VITAL SIGNS: Blood pressure 116/89, pulse 84, temperature 96. LUNGS: Clear to auscultation. HEART: Regular sinus rhythm. No murmur. ABDOMEN: Soft. No tenderness. No organomegaly. MUSCULOSKELETAL/LOWER EXTREMITIES: Edematous. NEUROLOGIC Mental status: He is awake, alert, is oriented x3. Speech clear now. He denies any headache. He denies any visual disturbance. No speech or swallowing difficulty. Cranial nerves: No focal paresthesia. No focal weakness. Patient, when he came into the hospital, has been complaining of numbness in the left side of the face and the left arm but not associated with weakness. Deep tendon reflexes: Triceps, biceps, radials 1+. Knee jerks and ankle jerks were absent bilaterally. Coordination: [id number] is normal. Gait: Slow, a little bit broad-based but not ataxic. He is able to turn around without any difficulty. HEAD: Normocephalic. NECK: Supple. Carotid pulsations were present bilaterally. There were no bruits. LABORATORY WORKUP: CBC shows a white count 3018 with a hemoglobin 12.0, hematocrit 34.1, platelets 121,000. Chemistry: Sodium 135, potassium 3.5, BUN 24, creatinine 1.35, estimated GFR 53. Liver enzymes: AST is slightly elevated, ALT is normal. Troponin normal. Triglycerides 55, total cholesterol 84. Digoxin normal. Urinalysis negative. CT scan of the brain shows no evidence of acute problem. There is chronic small-vessel disease. Carotid Doppler has been ordered and is pending. IMPRESSION 1. Transient ischemic attack which has resolved. 2. Chronic atrial fibrillation. 3. Congestive heart failure. 4. Microcytic anemia. RECOMMENDATION: We discussed with the about his situation. He was able to walk for me quite well without any difficulty. He seems to be a fighter nicolas. He does not follow direction from his . I told him that he needs to walk slow, turn around slow, he needs to avoid bending and picking up things from the floor, he needs to get out of the bed slow and wait a few seconds, stand that way a few seconds and then walk. His says probably he will not do that. I recommend him to do that because one of these days he is going to fall and he is going to break his bones. No further testing necessary at the present time. Will discuss with his monument erector, Dr. Thomson. Will follow closely. Job#: [id number]
[2018-01-17 17:53] VITALS: BP 107/69
[2018-01-17 20:00] VITALS: BP 117/67
[2018-01-17 23:00] VITALS: BP 117/67
[2018-01-18] VITALS: BP 132/80
[2018-01-18 04:00] VITALS: BP 132/80
[2018-01-18 06:28] LABS: BASOPHILS % 0.5 % (0.0-1.0); EOSINOPHILS # (AUTO) 0.2 (0.0-0.4); HEMATOCRIT 35.2 % (38.2-49.6); HEMOGLOBIN 12.2 g/dL (14.0-18.0); LYMPHOCYTES # (AUTO) 1.7 (1.0-3.2); LYMPHOCYTES % 28.4 % (18.0-39.1); MEAN CORPUSCULAR HEMOGLOBIN 37.9 pg (28-32); MEAN CORPUSCULAR HGB CONC 34.7 g/dL (31-35); MEAN CORPUSCULAR VOLUME 109.3 fL (81-99); MONOCYTES # (AUTO) 0.6 (0.2-0.8); MONOCYTES % 9.5 % (4.4-11.3); NEUTROPHILS # (AUTO) 3.5 (2.1-6.9); NEUTROPHILS % 58.3 % (38.7-80.0); PLATELET COUNT 127 x10e3/uL (140-360); RED BLOOD COUNT 3.22 x10e6/uL (4.3-5.7); RED CELL DISTRIBUTION WIDTH 14.6 % (11.7-14.4)
[2018-01-18 07:00] VITALS: BP 122/79
[2018-01-18 07:02] LABS: ALANINE AMINOTRANSFERASE 14 IU/L (0-55); ALBUMIN 3.2 g/dL (3.5-5.0); ALBUMIN/GLOBULIN RATIO 0.8 (0.8-2.0); ALKALINE PHOSPHATASE 80 IU/L (40-150); ANION GAP 12.9 mmol/L (8-16); BLOOD UREA NITROGEN 17 mg/dL (7-26); BUN/CREATININE RATIO 21 (6-25); CALCIUM 8.9 mg/dL (8.4-10.2); CARBON DIOXIDE 26 mmol/L (22-29); CHLORIDE 98 mmol/L (98-107); EST GLOMERULAR FILTRATION RATE > 60 ML/MIN (60-); GLUCOSE 113 mg/dL (74-118); POTASSIUM 3.9 mmol/L (3.5-5.1); SODIUM 133 mmol/L (136-145)
[2018-01-18 07:49] VITALS: BP 122/79
[2018-01-18] MEDS: SPIRONOLACTONE 25 MG TAB PO SCH (10:06)
[2018-01-18] MEDS: POTASSIUM CHLORIDE 20 MEQ TAB CR PO SCH (10:06)
[2018-01-18] MEDS: ASPIRIN 325 MG TAB PO SCH (10:06)
[2018-01-18] MEDS: CARVEDILOL 3.125 MG TAB PO SCH (10:06)
[2018-01-18] MEDS: HEPARIN SOD (PORCINE) 5,000 UNIT/ML VIAL SC SCH (10:07)
[2018-01-18] MEDS: FUROSEMIDE 40 MG TAB PO SCH (10:07)
[2018-01-18] MEDS: DIGOXIN 0.125 MG TAB PO SCH (10:07)
[2018-01-18] MEDS: FAMOTIDINE 20 MG TAB PO SCH (10:48)
[2018-01-18 11:18] VITALS: BP 130/81
[2018-01-18] MEDS ORDERED: SODIUM CHLORIDE 1 GM TAB PO SCH (12:00)
--- NOTE | 2018-01-18 16:42 | Discharge Summary ---
ADMITTING DIAGNOSES 1. Transient ischemic attack. 2. Chronic atrial fibrillation. 3. Chronic systolic congestive heart failure. 4. Acute kidney injury. 5. Microcytic anemia. DISCHARGE DIAGNOSES 1. Transient ischemic attack. 2. Chronic atrial fibrillation. 3. Chronic systolic congestive heart failure. 4. Acute kidney injury. 5. Microcytic anemia. 6. Hyponatremia. HISTORY: The patient has a history of systolic CHF with left ventricular EF of 20% to 25%, status post AICD, atrial fib, hypertension, diarrhea, melena, hyponatremia, bilateral pleural effusions secondary to CHF, mild anemia, thrombocytopenia, pneumonia. Surgical history of bilateral knee surgery, back surgery, and AICD placement. HOSPITAL COURSE: This 62-year-old male developing left facial numbness was admitted to the ER. He denies blurred vision, slurred speech, focal limb weakness. He denies dizziness. The numbness seemed to improve since admitting to the ER. It has been ongoing for about a day or two. He also complains of leg swelling, which is chronic. On admission, the patient got a chest x-ray, which was negative. CT of the cervical spine, which was negative. CT of the brain, which showed no acute or new intracranial abnormality, no change from prior head CT performed May 01, 2017. Unchanged mild volume loss for age. Unchanged moderate chronic microvascular ischemic change. CT the next day showed no mass, acute hemorrhage or acute cortical vascular insult. Questionable age-indeterminate lacunar insult in the right paramedian jaye. No other changes from previous CT. The patient had carotid Doppler that showed evidence of carotid disease bilaterally without significant stenosis. Echo showed an EF between 20% and 25%. There is mild to moderate aortic regurg, moderate mitral regurg, mild to moderate tricuspid regurg. There is trace pulmonic regurg. EKG showed ventricular pacing. Neurology was consulted. Neurology discussed with the patient and his that he needs to walk slow, turn slow, avoid bending and picking up things from the floor, getting out of bed slow and wait a few seconds before walking. His says he probably will not do that, and neuro says he needs to do that to prevent himself from falling. He walked in front of neuro well and without any difficulty. The patient is on digoxin and Coreg. No anticoagulation due to a GI bleed. He follows with cardiology. He is also on Lasix b.i.d. per cardiology. No medications were changed at the time of discharge. He was cleared by neurology, getting around independent, lives with his and does not need oxygen at the time of discharge. He will follow up with cardiology and PCP in 1 to 2 weeks. Dictated by Manuela Morrow NP. DONOVAN REED MD Job#: [id number]
[2018-01-18] MEDS ORDERED: CARVEDILOL 12.5 MG TAB PO SCH (17:00)
== END 2018-01-18 12:37 | disposition home or self-care (01) ==
LOC: ER 20:10 → ERHOLD 01-17 03:24 → IMCU 01-17 15:14
PROVIDERS: ADMIT Internal Medicine; ATTEND Internal Medicine
DX: G45.9 Transient cerebral ischemic attack, unspecified (principal); I48.2 Chronic atrial fibrillation; I50.22 Chronic systolic (congestive) heart failure; N17.9 Acute kidney failure, unspecified; D50.9 Iron deficiency anemia, unspecified; Z95.810 Presence of automatic (implantable) cardiac defibrillator; I11.0 Hypertensive heart disease with heart failure; E87.1 Hypo-osmolality and hyponatremia; I08.3 Combined rheumatic disorders of mitral, aortic and tricuspid valves
CPT/HCPCS: 36415 ×2; 70450 ×2; 71045; 72125; 80053 ×2; 80061; 80162; 81001; 82140; 82550 ×2; 82553 ×2; 84484 ×2; 85025 ×2; 85610; 85730; 93005; 93880; 96374; 97116; 97161; 99285; G0378 ×2; J1630; J1644 ×2

== ENCOUNTER 2018-01-23 19:18 | Emergency (ER) | payer MEDICARE ==
[~2018-01-23] VITALS: Ht 175.3 cm; Wt 75.7 kg
[~2018-01-23 19:18] MED LIST changes: +DIPHENOXYLATE-1 EACH PO
--- OUTSIDE RECORDS SUMMARY | 2018-01-23 19:20 | XMS REPORT | Continuity of Care Document ---
Author Author [facility] Organization [facility] Address [address] [place] [address] Phone Unavailable Care Team Providers [facility] Hand Name Role Phone YAYA HUNTER DO PCP Insurance Providers Guarantor Dori Nevarez Address [address] [place] [address] Email [email or web address] Payer [employer] Medicare Complete Policy Number [id number] Subscriber's Name Dori Nevarez Relationship 18 Self / Same As Patient Group Number [id number] Group Name UNEMPLOYED Effective Date 17 Advance Directives Directive Response Recorded Date/Time Does the patient have an advance directive? No 01/02/18 10:15pm If yes, is advance directive on file with [facility]? No 01/02/18 10:15pm If not on file with [facility] will patient provide a copy? No 01/02/18 10:15pm Do you have a Directive to Physician? No 01/17/18 12:38am Do you have a Medical Power of Sausage Maker? No 01/17/18 12:38am Do you have an out of hospital Do Not Resuscitate Order? No 01/17/18 12:38am Do you have any special needs we should be aware of? No 01/17/18 12:38am Do you have a support person here with you today? Yes 01/17/18 12:38am Did patient receive Notice of Privacy Practices? Yes 01/17/18 12:38am Did patient receive patient rights and responsibilities? Yes 01/17/18 12:38am Problems Medical Problem Onset Date Status CHF (congestive heart failure) Unknown CHF (congestive heart failure) Unknown Confusion Unknown Hyponatremia Unknown TIA (transient ischemic attack) Unknown Medications Current Home Medications Medication Dose Units Route Directions Days Qty Instructions Start Date Aspirin 325 Mg Tablet 325 Mg Oral Daily 30 Days 01/05/18 Carvedilol 3.125 Mg Tablet 6.25 Mg Oral Twice A Day 60 Tab Digoxin 125 Mcg Tablet 0.125 Mg Oral Daily 30 Tab Diphenoxylate Hcl/Atropine (Diphenoxylate-Atropine Tablet) 1 Each Tablet 1 Tab Oral Every 12 Hours as needed for Diarrhea Furosemide (Lasix) 40 Mg Tablet 40 Mg Oral Twice A Day 60 Tab 07/28 Hydrocodone Bit/Acetaminophen ([place] 5-325 Tablet) 1 Each Tablet 1 Each [...] Mg Oral Twice A Day 11/15/17 Discontinued Cholestyramine (With Sugar) (Questran Packet) 4 Gm Packet, 4 Gm Oral Daily as needed for Diarrhea 11/15/17 Discontinued Digoxin 125 Mcg Tablet, 0.125 Mg Oral Daily Discontinued Doxycycline Hyclate 100 Mg Capsule, 100 Mg Oral Every 12 Hours Discontinued Furosemide 40 Mg Tablet, 40 Mg Oral Bid@,18 04/28/17 Discontinued Furosemide 40 Mg Tablet, 20 Mg Oral Daily Discontinued Guaifenesin/Dextromethorphan (Mucinex Dm Er 600-30 Mg Tablet) 1 Each Tab.er.12h , 1 Each Oral Every 12 Hours as needed for Cough 01/05/18 Discontinued Guaifenesin/Dextromethorphan (Mucinex Dm Er 600-30 Mg [...] Applicable Smoking Status Start Date Stop Date Former smoker Hospital Discharge Instructions No hospital discharge instruction information available. Plan of Care Discharge Date 01/18/18 12:37pm Disposition HOME, SELF-CARE Instructions/Education Provided Syncope Prescriptions See Medication Section Referrals RENU THOMSON MD (Cardiology) Order Date: 1-2 Weeks Entered Date: 01/18/2018 11:52am Address: [address] [place] [id number] DIANE (Neurology) Order Date: 2 Weeks Entered Date: 01/18/2018 12:24pm Additional Instructions/Education FOLLOW UP WITH DR. GEE IN 12 DAYS. CALL OFFICE TOMORROW TO MAKE APPOINTMENT. follow up with Dr. Thomson in 1-2 weeks. f/u with pcp in 1-2 weeks Functional Status Query Response Date Recorded Assistive Devices None January 17, 2018 5:53pm Ambulation Ability Independent January 17, 2018 5:53pm Toileting Ability Independent January 17, 2018 5:53pm Allergies, Adverse Reactions, Alerts Allergen Type Severity Reaction Status Last Updated suvorexant Allergy Intermediate SWELLING Active 07/25/17 Immunizations No immunization information available. Vital Signs Acute Vital Signs Vital Response Date/Time Temperature (Fahrenheit) 98.8 degrees F (97.6 - 99.5) 01/18/2018 11:18am Pulse Pulse Rate (adult) 83 bpm (60 - 90) 01/18/2018 11:18am Respiratory Rate 19 bpm (12 - 24) 01/18/2018 11:18am Blood Pressure 130/81 mm Hg 01/18/2018 11:18am Height 5 ft 9 in 01/16/2018 8:41pm Weight 167 lb 01/16/2018 8:41pm Body Mass Index 24.7 kg/m^2 01/16/2018 8:41pm Results Laboratory Results Test Name Result Units Flags Reference Collection Date/Time Result Date/ Time Comments Urine Total Volume 2450 ml/24hr H 800-2000 04/23/2017 1:40pm 04/24/2017 2:00pm Urine Random Sodium 64 mmol/L 04/23/2017 1:40pm 04/24/2017 2:10pm Urine Sodium 24 Hour 156 MMOL/24H 40-220 04/23/2017 1:40pm 04/24/2017 2 :10pm Lactic Acid Level 12.8 MG/DL 4.5-19.8 05/01/2017 9:00pm 05/01/2017 10: 17pm Phosphorus Level 3.2 MG/DL 2.3-4.7 07/27/2017 6:25am 07/27/2017 7:10am Vitamin B12 Level 479 pg/mL 213-816 07/28/2017 6:10am 07/28/2017 8: 24am Influenza Virus Types A,B Antigen NEGATIVE NEGATIVE 11/10/2017 10: 30am 11/10/2017 11:07am Free Thyroxine 0.95 ng/dL 0.8-1.8 11/12/2017 7:30am 11/12/2017 9:21am Thyroid Stimulating Hormone (TSH) 2.319 uIU/mL 0.350-4.940 11/12/2017 7: 30am 11/12/2017 9:21am Stool Occult Blood NEGATIVE NEGATIVE 11/13/2017 6:15am 11/13/2017 9: 09am Clostridium Difficile Toxin A & B NEGATIVE NEGATIVE 11/13/2017 6:15am 11/13/2017 3:18pm Testing on stool aspirate specimens is outside fur stylist claims since specimen type not validated on this assay. Bedside Glucose 170 mg/dL H 70-120 01/03/2018 7:11pm 01/03/2018 7:19pm Meter ID: [id number] Magnesium Level 1.5 MG/DL 1.3-2.1 01/03/2018 6:15am 01/03/2018 8:24am B-Type Natriuretic Peptide 2239.1 pg/mL H 0-100 01/02/2018 6:05pm 2017 7:31pm White Blood Count 6.02 x10e3/uL 4.8-10.8 01/18/2018 6:10am 01/18/2018 6 :36am Red Blood Count 3.22 x10e6/uL L 4.3-5.7 01/18/2018 6:10a01/18/2018 6: 36am Hemoglobin 12.2 g/dL L 14.0-18.0 01/18/2018 6:10a01/18/2018 6:36am Hematocrit 35.2 % L 38.2-49.6 01/18/2018 6:10a01/18/2018 6:36am Mean Corpuscular Volume 109.3 fL H 81-99 01/18/2018 6:10a01/18/2018 6: 36am Mean Corpuscular Hemoglobin 37.9 pg H 28-32 01/18/2018 6:10a2017 6:36am Mean Corpuscular Hemoglobin Concent 34.7 g/dL 31-35 01/18/2018 6:10a01/18/2018 6:36am Red Cell Distribution Width 14.6 % H 11.7-14.4 01/18/2018 6:10a2017 6:36am Platelet Count 127 x10e3/uL L 140-360 01/18/2018 6:01/18/2018 6: 36am Neutrophils (%) (Auto) 58.3 % 38.7-80.0 01/18/2018 6:01/18/2018 6: 36am Lymphocytes (%) (Auto) 28.4 % 18.0-39.1 01/18/2018 6:01/18/2018 6: 36am Monocytes (%) (Auto) 9.5 % 4.4-11.3 01/18/2018 6:01/18/2018 6: 36am Eosinophils (%) (Auto) 3.0 % 0.0-6.0 01/18/2018 6:10a01/18/2018 6: 36am Basophils (%) (Auto) 0.5 % 0.0-1.0 01/18/2018 6:01/18/2018 6:36am IM GRANULOCYTES % 0.3 % 0.0-1.0 01/18/2018 6:01/18/2018 6:36am Neutrophils # (Auto) 3.5 2.1-6.9 01/18/2018 6:01/18/2018 6:36am Lymphocytes # (Auto) 1.7 1.0-3.2 01/18/2018 6:01/18/2018 6:36am Monocytes # (Auto) 0.6 0.2-0.8 01/18/2018 6:01/18/2018 6:36am Eosinophils # (Auto) 0.2 0.0-0.4 01/18/2018 6:01/18/2018 6:36am Basophils # (Auto) 0.0 0.0-0.1 01/18/2018 6:01/18/2018 6:36am Absolute Immature Granulocyte (auto 0.02 x10e3/uL 0-0.1 01/18/2018 6: 01/18/2018 6:36am Prothrombin Time 19.4 seconds H 11.9-14.5 01/16/2018 9:00pm 01/16/2018 9 :28pm Prothromb Time International Ratio 1.77 01/16/2018 9:00pm 2017 9:28pm Oral Anticoagulant Therapy INR Values: 1. Low Intensity Therapy 1.5 - 2.0 2. Moderate Intensity Therapy 2.0 - 3.0 3. High Intensity Therapy(1) 2.5 - 3.5 4. High Intensity Therapy(2) 3.0 - 4.0 5. Panic Value INR > 5.0 Activated Partial Thromboplast Time 32.0 seconds 23.8-35.5 01/16/2018 9: 00pm 01/16/2018 9:28pm Urine Color YELLOW YELLOW 01/17/2018 2:53am 01/17/2018 3:03am Urine Clarity CLEAR CLEAR 01/17/2018 2:53am 01/17/2018 3:03am Urine Specific [place] 1.020 1.010-1.025 01/17/2018 2:53am 2017 3:03am Urine pH 5 5 - 7 01/17/2018 2:53am 01/17/2018 3:03am Urine Leukocyte Esterase NEGATIVE NEGATIVE 01/17/2018 2:53am 2017 3:03am Urine Nitrite NEGATIVE NEGATIVE 01/17/2018 2:53am 01/17/2018 3:03am Urine Protein 1+ H NEGATIVE 01/17/2018 2:53am 01/17/2018 3:03am Urine Glucose (UA) NEGATIVE NEGATIVE 01/17/2018 2:53am 01/17/2018 3: 03am Urine Ketones NEGATIVE NEGATIVE 01/17/2018 2:53am 01/17/2018 3:03am Urine Urobilinogen 0.2 mg/dL 0.2 - 1 01/17/2018 2:53am 01/17/2018 3: 03am Urine Bilirubin NEGATIVE NEGATIVE 01/17/2018 2:53am 01/17/2018 3: 03am Urine Blood NEGATIVE NEGATIVE 01/17/2018 2:53am 01/17/2018 3:03am Urine WBC 0-5 /HPF 0-5 01/17/2018 2:53am 01/17/2018 3:20am Urine RBC 0-5 /HPF 0-5 01/17/2018 2:53am 01/17/2018 3:20am Urine Bacteria NONE /HPF NONE 01/17/2018 2:53am 01/17/2018 3:20am Urine Epithelial Cells NONE /LPF NONE 01/17/2018 2:53am 01/17/2018 3: 20am Sodium Level 133 mmol/L L 136-145 01/18/2018 6:01/18/2018 7:02am Potassium Level 3.9 mmol/L 3.5-5.1 01/18/2018 6:01/18/2018 7:02am Chloride Level 98 mmol/L 98-107 01/18/2018 6:01/18/2018 7:02am Carbon Dioxide Level 26 mmol/L 22-29 01/18/2018 6:01/18/2018 7: 02am Anion Gap 12.9 mmol/L 8-16 01/18/2018 6:01/18/2018 7:02am Blood Urea Nitrogen 17 mg/dL 7-01/18/2018 6:01/18/2018 7:02am Creatinine 0.80 mg/dL 0.72-1.25 01/18/2018 6:01/18/2018 7:02am BUN/Creatinine Ratio 21 6-01/18/2018 6:01/18/2018 7:02am Estimat Glomerular Filtration Rate > 60 ML/MIN 60- 01/18/2018 6: 7:02am Ranges were taken from the National Kidney Disease Education Program and the National Kid[employer] literature. Reference ranges: 60 or greater: Normal 16-59 (for 3 consecutive months): Chronic kidney disease 15 or less: Kidney failure Glucose Level 113 mg/dL 74-118 01/18/2018 6:01/18/2018 7:02am Calcium Level 8.9 mg/dL 8.4-10.2 01/18/2018 6:01/18/2018 7:02am Total Bilirubin 1.5 mg/dL H 0.2-1.2 01/18/2018 6:01/18/2018 7:02am Aspartate Amino Transf (AST/SGOT) 30 IU/L 5-34 01/18/2018 6:2017 7:02am Alanine Aminotransferase (ALT/SGPT) 14 IU/L 0-55 01/18/2018 6: 7:02am Ammonia 38 UG/DL 31-123 01/16/2018 9:00pm 01/16/2018 9:29pm Total Protein 7.0 g/dL 6.5-8.1 01/18/2018 6:10am 01/18/2018 7:02am Albumin 3.2 g/dL L 3.5-5.0 01/18/2018 6:10am 01/18/2018 7:02am Globulin 3.8 g/dL H 2.3-3.5 01/18/2018 6:10am 01/18/2018 7:02am Albumin/Globulin Ratio 0.8 0.8-2.0 01/18/2018 6:10am 01/18/2018 7: 02am Alkaline Phosphatase 80 IU/L 40-150 01/18/2018 6:10am 01/18/2018 7: 02am Triglycerides Level 55 MG/DL 0-149 01/17/2018 3:30am 01/17/2018 8:46am Cholesterol Level 84 MD/DL 0-199 01/17/2018 3:30am 01/17/2018 8:46am Less than 200 mg/dL Low Risk 201 - 239 mg/dL Borderline Risk 240 mg/dl and greater High Risk LDL Cholesterol 44 MG/DL L 60-130 01/17/2018 3:30am 01/17/2018 8:46am HDL Cholesterol 29 MG/DL L 40-60 01/17/2018 3:30am 01/17/2018 8:46am Cholesterol/HDL Ratio 2.9 L 3.9-4.7 01/17/2018 3:30am 01/17/2018 8: 46am Creatine Kinase 66 IU/L 30-200 01/17/2018 11:53am 01/17/2018 12:22pm Creatine Kinase MB 2.20 ng/mL 0-5.0 01/17/2018 11:53am 01/17/2018 12: 25pm Troponin I 0.022 ng/mL 0-0.300 01/17/2018 11:53am 01/17/2018 12:25pm Digoxin Level 0.51 ng/mL L 0.8-2.0 01/17/2018 3:30am 01/17/2018 8:46am Microbiology Results Procedure Source Organism/Result Collection Date/Time [...] Ultrasound of chest including mediastinum Active 01/04/18 FRANCY,PHILOMINA ALLOPATHIC DOCTOR Computed tomography of brain without radiopaque contrast Active 01/16/18 MAHESH SAMS MD Computed tomography of cervical spine without contrast Active 01/16/18 MAHESH SAMS MD Computed tomography of brain without radiopaque contrast Active 01/17/18 MAHESH SAMS MD Encounters Encounter Location Arrival/Admit Date Discharge/Depart Date Attending Provider Discharged Inpatient (obs) [facility] 01/17/18 3:24am 12:37pm DONOVAN REED MD [facility] [...] 9:29am 11:09am KADEN DUNCAN MD Discharged Inpatient [facility] 04/23/17 1:07pm 04/28/17 4:40pm DONOVAN REED MD
== END 2018-01-23 22:00 | disposition left against medical advice (07) ==
LOC: ER 19:18
DX: S40.012A Contusion of left shoulder, initial encounter (principal); S80.12XA Contusion of left lower leg, initial encounter; W22.8XXA Striking against or struck by other objects, initial encounter; Y92.512 Supermarket, store or market as the place of occurrence of the external cause